=== PATIENT | female | born 1965 | race Caucasian/White ===

== ENCOUNTER → 2021-07-23 | Outpatient (CLI) | payer BC ==
--- NOTE | 2021-07-23 15:54 | KCIC ---
Bilateral digital screening mammograms with 3-D tomosynthesis: Reason for examination: Routine screening. Comparison is made to previous studies dated back to 09/05/2017. Bilateral mammograms in CC and oblique projections were obtained with 2-D imaging and 3-D tomosynthes is imaging on a Siemens Inspiration unit and reviewed on the workstation. Interpretation was made jovana amezcua the benefit of CAD. The skin and nipples show no abnormalities. No abnormal axillary lymph nodes are seen. The breast par enchyma is extremely dense. (Breast density: Category D.) There continues to be some focal dense pare nchymal asymmetry inferiorly in the left breast seen best on oblique view which is stable. There are no new dominant masses, suspicious calcifications or architectural distortion. Impression: No evidence of malignancy. Recommend routine screening. Your patient's mammogram demonstrates that she has dense breast tissue (breast density category C or D), which could hide abnormalities, and if she has other risk factors for breast cancer that have bee n identified, she might benefit from supplemental screening tests that may be suggested by you as her ordering physician. Dense breast tissue, in and of itself, is a relatively common condition. Therefo re, this information is not provided to cause undue concern, but rather to raise your awareness and t o promote discussion with your patient regarding the presence of other risk factors, in addition to d ense breast tissue. Your patient's mammography results will be sent to her. BI-RAD Category 2: Benign. "Our facility is accredited by the [employer] Mammography Program." This patient's information has been entered into a reminder system for the patient to be notified wit h the results of her examination and a target date for the next mammogram. Electronically signed by: Ioana Irvin MD (07/23/2021 3:51 PM) [id number]
== END ==
LOC: KCIC MAMMO 08:51 → EDBD 09:00
PROVIDERS: ATTEND Obstetrics & Gynecology
DX: Z12.31 Encounter for screening mammogram for malignant neoplasm of breast (principal)
CPT/HCPCS: 77063; 77067

== ENCOUNTER 2021-10-11 13:38 | Inpatient (IN) | payer BC ==
[~2021-10-11] VITALS: Ht 162.6 cm; Wt 52.6 kg
[2021-10-11] MEDS ORDERED: DIPHTH,PERTUSS(ACELL),TET TOX 0.5 ML DISP.SYRIN. VAX IM ONE (14:15)
[2021-10-11] MEDS ORDERED: PIPERACILLIN/TAZOBACTAM 4.5 GM in IV NORMAL SALINE 100ML 100 ML IV ONE (14:15)
[2021-10-11] MEDS ORDERED: MORPHINE SULFATE 4 MG/ML INJ. IV/SQ PRN (14:15)
[2021-10-11] MEDS ORDERED: VANCOMYCIN PER PHARMACY MC ONE (14:15)
[2021-10-11] MEDS ORDERED: PIPERACILLIN/TAZOBACTAM 4.5 GM in IV DEXTROSE 5% 100ML 100 ML IV ONE (14:22)
[2021-10-11] MEDS ORDERED: VANCOMYCIN 1.25 GM in IV NORMAL SALINE 250ML 250 ML IV ONE ×2 (14:30→19:00)
--- NOTE | 2021-10-11 14:34 | RAD ---
Left foot 3 views. HISTORY: Infected second toe. 3 views were taken of the left foot. There is soft tissue swelling of the second toe. There is no fra cture or bony destructive process of the second toe. There is marked arthritis at the first metatarsa l phalangeal joint with joint space narrowing. There are erosions at the head of the first metatarsal . Arthritis could have this pattern or an infectious arthritis. There is no other acute osseous abnor mality in the left foot. IMPRESSION: 1. Soft tissue swelling left second toe without a fracture or bony destructive process. 2. Marked arthritis first metatarsal phalangeal joint. Electronically signed by: Diaz Nguyen MD (10/11/2021 2:31 PM) [id number]
[2021-10-11] MEDS: IV NORMAL SALINE 1000ML BAG 1,000 ML IV SCH ×2 (14:52→15:24)
--- NOTE | 2021-10-11 15:44 | PHYS DOC ---
Past Medical History Past Surgical History: Other Additional Past Surgical Histo: l FOOT Smoking Status: Never Smoker Alcohol Use: None General Adult EDM: Chief Complaint: TOE PROBLEM HPI: HPI: Patient is a 56 year old female with no significant medical history presenting today complaining of an infected left second toe. Patient states a couple months ago she had a tiny cut on the bottom of the left toe, she states last week she picked on it and it developed a wound. She states the wound has gotten worse. Patient reports fever last night. Denies any nausea, vomiting. Denies any history of PVD. Review of Systems: Review of Systems: Constitutional: Denies fever or chills. [] HENT: Denies nasal congestion or sore throat. [] Respiratory: Denies cough or shortness of breath. [] Cardiovascular: Denies chest pain or edema. [] GI: Denies abdominal pain, nausea, vomiting, bloody stools or diarrhea. [] : Denies dysuria. [] Musculoskeletal: Denies back pain or joint pain. [] Integument: Reports infection to the left second toe Neurologic: Denies headache, focal weakness or sensory changes. [] Psychiatric: Denies depression or anxiety. [] Heart Score: C/O Chest Pain: N/A Risk Factors: Risk Factors: DM, Current or recent (<one month) smoker, HTN, HLP, family history of CAD, obesity. Risk Scores: Score 0 - 3: 2.5% MACE over next 6 weeks - Discharge Home Score 4 - 6: 20.3% MACE over next 6 weeks - Admit for Clinical Observation Score 7 - 10: 72.7% MACE over next 6 weeks - Early Invasive Strategies Current Medications: Current Medications Medications (Trade) Dose Ordered Sig/Eliana Start Time Stop Time Status Last Admin Dose Admin Diphtheria/ Tetanus/Acell Pertussis (Boostrix) 0.5 ml ONCE ONCE 10/11/21 14:15 10/11/21 14:19 DC 10/11/21 15:33 0.5 ML Morphine Sulfate (Morphine Sulfate) 4 mg PRN Q15MIN PRN 10/11/21 14:15 10/12/21 14:14 Piperacillin Sod/ Tazobactam Sod 4.5 gm/Dextrose 100 ml @ 200 mls/hr 1X ONCE 10/11/21 14:22 10/11/21 14:44 DC 10/11/21 15:26 200 MLS/HR Piperacillin Sod/ Tazobactam Sod 4.5 gm/Sodium Chloride 100 ml @ 200 mls/hr 1X ONCE 10/11/21 14:15 10/11/21 14:22 DC Sodium Chloride 1,000 ml @ 1,650 mls/hr Q37M 10/11/21 14:15 10/11/21 15:15 DC 10/11/21 15:24 1,650 MLS/HR Vancomycin HCl (Vanco Per Pharmacy) 1 each 1X ONCE 10/11/21 14:15 10/11/21 14:19 DC Vancomycin HCl 1.25 gm/Sodium Chloride 250 ml @ 166.667 mls/hr 1X ONCE 10/11/21 14:30 10/11/21 15:59 Allergies: Allergies: Allergies Coded Allergies Type Severity Reaction Last Updated Verified No Known Drug Allergies 10/11/21 No Physical Exam: PE: Constitutional: Well developed, well nourished, no acute distress, non-toxic appearance. [] HENT: Normocephalic, atraumatic, bilateral external ears normal, oropharynx moist, no oral exudates, nose normal. [] Eyes: PERRLA, EOMI, conjunctiva normal, no discharge. [] Neck: Normal range of motion, no tenderness, supple, no stridor. [] Cardiovascular:Heart rate regular rhythm, no murmur [] Lungs & Thorax: Bilateral breath sounds clear to auscultation [] Abdomen: Bowel sounds normal, soft, no tenderness, no masses, no pulsatile masses. [] Skin: Left second toe with moderate swelling, moderate cellulitis from the toe ventral and dorsal aspect to the top half of the foot. There are multiple blisters on the toe lateral and top, the bottom of the mid toe with areas that appear necrotic. The toe is warm tender to touch, range of motion is limited, no obvious drainage right now. +2 left pedal pulse. Cap refill less than 2 seconds to left second toe Back: No tenderness, no CVA tenderness. [] Extremities: No tenderness, no cyanosis, no clubbing, ROM intact, no edema. [] Neurologic: Alert and oriented X 3, normal motor function, normal sensory function, no focal deficits noted. [] Psychologic: Tearful, sad Current Patient Data: Vital Signs: Vital Signs Date Time Temp Pulse Resp B/P (MAP) Pulse Ox O2 Delivery O2 Flow Rate FiO2 10/11/21 13:40 98.6 110 18 133/89 (104) 100 Room Air 98.6 EKG: EKG: [] Radiology/Procedures: Radiology/Procedures: []PROCEDURE: FOOT LEFT 3V Left foot 3 views. HISTORY: Infected second toe. 3 views were taken of the left foot. There is soft tissue swelling of the second toe. There is no fracture or bony destructive process of the second toe. There is marked arthritis at the first metatarsal phalangeal joint with joint space narrowing. There are erosions at the head of the first metatarsal. Arthritis could have this pattern or an infectious arthritis. There is no other acute osseous abnormality in the left foot. IMPRESSION: 1. Soft tissue swelling left second toe without a fracture or bony destructive process. 2. Marked arthritis first metatarsal phalangeal joint. Electronically signed by: Diaz Nguyen MD (10/11/2021 2:31 PM) [id number] DICTATED and SIGNED BY: DIAZ NGUYEN MD DATE: 10/11/21 1429 Course & Med Decision Making: Course & Med Decision Making Pertinent Labs and Imaging studies reviewed. (See chart for details) This a 56-year-old female patient presenting to the ED today complaining of infected left second toe. Patient states she had a cut underneath the left second toe months ago, she picked on the area a last week and he developed a wound. Vitals on arrival to the ED temperature 98.6, heart rate 110, respiration 18 on room air, blood pressure 133/89, O2 sats 100% Patient was started on sepsis protocol including IV antibiotics, IV fluids. Left foot x-rays are negative for any acute findings CBC with a WBC of 11.4, CMP with no acute findings, lactic is normal. Spoke to Dr. Wakefield who accepted patient for admission Dr. Pereira radiation control technician came and saw patient, n.p.o. after midnight, surgery tomorrow for partial toe amputation Franky Disclaimer: Franky Disclaimer: This electronic medical record was generated, in whole or in part, using a voice recognition dictation system. Departure Departure Impression: Primary Impression: Toe infection Disposition: ADMITTED INPATIENT Condition: STABLE Referrals: HAN LOPES MD (PCP) ZULEYKA ANNE APRN Oct 11, 2021 15:44
[2021-10-11 15:45] LABS: BASO % 0 % (0-3); EOS % 0 % (0-3); HEMATOCRIT 38.9 % (36.0-47.0); HEMOGLOBIN 13.3 g/dL (12.0-15.5); LYMPH # 0.8 x10^3/uL (1.0-4.8); LYMPH % 7 % (24-48); MEAN CORPUSCULAR HEMOGLOBIN 29 pg (25-35); MEAN CORPUSCULAR HGB CONC 34 g/dL (31-37); MEAN CORPUSCULAR VOLUME 84 fL (79-100); MONO # 0.9 x10^3/uL (0.0-1.1); MONO % 8 % (0-9); NEUT # 9.6 x10^3/uL (1.8-7.7); NEUT % 85 % (31-73); PLATELET COUNT 260 x10^3/uL (140-400); RED BLOOD COUNT 4.62 x10^6/uL (3.50-5.40); RED CELL DISTRIBUTION WIDTH 13.5 % (11.5-14.5); WHITE BLOOD COUNT 11.4 x10^3/uL (4.0-11.0)
[2021-10-11 16:06] LABS: CALCIUM 9.6 mg/dL (8.5-10.1); GFR 57.1; POTASSIUM 4.2 mmol/L (3.5-5.1)
[2021-10-11 16:19] LABS: ALBUMIN 4.3 g/dL (3.4-5.0); TOTAL BILIRUBIN 1.1 mg/dL (0.2-1.0); TOTAL PROTEIN 8.4 g/dL (6.4-8.2)
[2021-10-11 16:36] LABS: BARBITURATES NEG (NEG); BENZODIAZEPINES NEG (NEG); CANNABINOIDS NEG (NEG); COCAINE NEG (NEG); METHADONE NEG (NEG); OPIATES NEG (NEG); PHENCYCLIDINE NEG (NEG)
--- NOTE | 2021-10-11 16:36 | RAD ---
INDICATION: Reason: Left toe wound / Spl. Instructions: / History: COMPARISON: None. TECHNIQUE: Grayscale, color and doppler ultrasound images were obtained of the left lower extremity v enous vasculature. LEFT: No thrombus identified in the common femoral vein, femoral vein, popliteal vein or visualized calf ve ins. IMPRESSION: * No thrombus identified in deep venous system of the left lower extremity. * Enlarged lymph node in the left groin measuring 27 x 16 mm. Could be reactive in nature but follow -up could be obtained to ensure this appropriately regresses to exclude less common neoplastic causes . Electronically signed by: Asher Prieto MD (10/11/2021 4:34 PM) [id number]
--- NOTE | 2021-10-11 16:38 | RAD ---
US LEFT LOWER EXTREMITY ARTERIAL DUPLEX EVAL Indication: Reason: Left toe wound / Spl. Instructions: / History: Comparison: None. Procedure: Real-time grayscale, color flow Doppler, and Doppler spectral waveform analysis of the art erial system of the lower extremity is performed. Findings: Triphasic waveforms throughout the majority of the left lower extremity. Monophasic waveform within t he left dorsalis pedis artery. Mildly elevated velocity within the common femoral artery measures 150 cm/s. No occlusion. IMPRESSION: 1. Mildly elevated velocity within the left common femoral artery, may indicate 30-49 percent stenos is. 2. Monophasic waveform within the left dorsalis pedis artery, may relate to proximal stenosis. Electronically signed by: Alberto Coronel DO (10/11/2021 4:36 PM) [facility]
[2021-10-11 16:49] LABS: AMPHETAMINE/METHAMPHETAMINE NEG (NEG)
[2021-10-11 16:58] LABS: BACTERIA,URINE 0 /HPF (0-FEW)
[2021-10-11] MEDS ORDERED: ACETAMINOPHEN 325 MG TABLET. PO PRN ×2 (17:15→18:30)
[2021-10-11] MEDS ORDERED: ONDANSETRON PF 4 MG/2 ML VIAL. IVP PRN ×2 (17:15→18:30)
[2021-10-11] MEDS ORDERED: MORPHINE SULFATE 4 MG/ML INJ. IVP PRN (17:15)
--- NOTE | 2021-10-11 18:26 | PDOC1 ---
History and Physical Date of Service: DOS: DATE: 10/11/21 TIME: 18:26 Chief Complaint: Chief Complain: Left toe pain History of Present Illness: HPI: Patient is a 56 year old female with no significant medical history presenting today complaining of an infected left second toe. Patient states a couple months ago she had a tiny cut on the bottom of the left toe, she states last week she picked on it and it developed a wound. She states the wound has gotten worse. Has tried wrapping it feels like she wrapped it too tight and consult the circulation. Patient reports fever last night. Denies any nausea, vomiting. Denies any history of PVD. No history of wound healing issues. No history of diabetes Past Medical/Surgical History: PMH/PSH: Hypothyroid Allergies: Allergies: Coded Allergies: No Known Drug Allergies (Unverified , 10/11/21) Family History: Family History: None known per patient Social History: Social History: Denies alcohol tobacco or drug use. Current Medications: Current Medications Current Medications Sodium Chloride 1,000 ml @ 1,650 mls/hr Q37M IV Last administered on 10/11/21at 15:24; Start 10/11/21 at 14:15; Stop 10/11/21 at 15:15; Status DC Piperacillin Sod/ Tazobactam Sod 4.5 gm/Sodium Chloride 100 ml @ 200 mls/hr 1X ONCE IV ; Start 10/11/21 at 14:15; Stop 10/11/21 at 14:22; Status DC Vancomycin HCl (Vanco Per Pharmacy) 1 each 1X ONCE MC ; Start 10/11/21 at 14:15; Stop 10/11/21 at 14:19; Status DC Morphine Sulfate (Morphine Sulfate) 4 mg PRN Q15MIN PRN IV/SQ PAIN GREATER THAN 3/10; Start 10/11/21 at 14:15; Stop 10/12/21 at 14:14 Diphtheria/ Tetanus/Acell Pertussis (Boostrix) 0.5 ml ONCE ONCE VAX IM Last administered on 10/11/21at 15:33; Start 10/11/21 at 14:15; Stop 10/11/21 at 14: 19; Status DC Vancomycin HCl 1.25 gm/Sodium Chloride 250 ml @ 166.667 mls/hr 1X ONCE IV Last administered on 10/11/21at 16:05; Start 10/11/21 at 14:30; Stop 10/11/21 at 15:59; Status DC Piperacillin Sod/ Tazobactam Sod 4.5 gm/Dextrose 100 ml @ 200 mls/hr 1X ONCE IV Last administered on 10/11/21at 15:26; Start 10/11/21 at 14:22; Stop 10/11/21 at 14:44; Status DC Ondansetron HCl (Zofran) 4 mg PRN Q8HRS PRN IVP NAUSEA/VOMITING; Start 10/11/21 at 17:15; Stop 10/12/21 at 17:14 Morphine Sulfate (Morphine Sulfate) 4 mg PRN Q2HR PRN IVP PAIN; Start 10/11/21 at 17:15; Stop 10/12/21 at 17:14 Acetaminophen (Tylenol) 650 mg PRN Q4HRS PRN PO FEVER > 100.3'F; Start 10/11/21 at 17:15; Stop 10/12/21 at 17:14 Vancomycin HCl (Vanco Per Pharmacy) 1 each PRN DAILY PRN MC SEE COMMENTS; Start 10/11/21 at 18:30; Status UNV Cefepime HCl (Maxipime) 2 gm Q12HR IVP ; Start 10/11/21 at 19:00 Metronidazole 100 ml @ 100 mls/hr Q8HRS IV ; Start 10/11/21 at 22:00; Status UNV ROS: Review of Systems Review of System Unless noted in HPI 14 point review of systems is negative Physical Exam: Vital Signs: Vital Signs Date Time Temp Pulse Resp B/P (MAP) Pulse Ox O2 Delivery O2 Flow Rate FiO2 10/11/21 16:09 101 18 126/88 (101) 100 Room Air 10/11/21 13:40 98.6 98.6 Physcial Exam: GEN: Quite a bit of emotional distress HEENT: Normal cephalic, atraumatic, external auditory canals are patent EYES: Extraocular muscles are intact, pupil are equally round and reactive to light and accommodation MUSCULOSKELETAL: Well developed , well nourished, good range of motion ENDOCRINE: No thyromegaly was palpated LYMPHATICS: No cervical chain or axillary nodes were noted HEMATOPOIETIC: No bruising NECK: Supple, no JVD, no thyromegaly was noted LUNGS: Clear to auscultation in all lung bardales without rhonchi or wheezing HEART: RRR, S1, S2 present. Peripheral pulses intact, no obvious murmurs noted ABDOMEN: Soft, nontender. Positive bowel sounds, no organomegaly, normal bowel sounds EXTREMITIES: Without clubbing, cyanosis, or edema. Pedal pulses intact. Negative Homans sign NEUROLOGIC: Normal speech and tone. A&O x 3, moves all extremities, no obvious focal deficits PSYCHIATRIC: Normal affect, normal mood. Stable SKIN: Weeping of fluid and cellulitic on left second toe VASCULAR: Good capillary refill, neurovascular bundle appears to be intact Labs: Labs: Laboratory Tests Test 10/11/21 15:10 10/11/21 15:18 10/11/21 16:15 White Blood Count 11.4 x10^3/uL (4.0-11.0) Red Blood Count 4.62 x10^6/uL (3.50-5.40) Hemoglobin 13.3 g/dL (12.0-15.5) Hematocrit 38.9 % (36.0-47.0) Mean Corpuscular Volume 84 fL (79-100) Mean Corpuscular Hemoglobin 29 pg (25-35) Mean Corpuscular Hemoglobin Concent 34 g/dL (31-37) Red Cell Distribution Width 13.5 % (11.5-14.5) Platelet Count 260 x10^3/uL (140-400) Neutrophils (%) (Auto) 85 % (31-73) Lymphocytes (%) (Auto) 7 % (24-48) Monocytes (%) (Auto) 8 % (0-9) Eosinophils (%) (Auto) 0 % (0-3) Basophils (%) (Auto) 0 % (0-3) Neutrophils # (Auto) 9.6 x10^3/uL (1.8-7.7) Lymphocytes # (Auto) 0.8 x10^3/uL (1.0-4.8) Monocytes # (Auto) 0.9 x10^3/uL (0.0-1.1) Eosinophils # (Auto) 0.0 x10^3/uL (0.0-0.7) Basophils # (Auto) 0.0 x10^3/uL (0.0-0.2) Erythrocyte Sedimentation Rate 31 (0-25) Sodium Level 138 mmol/L (136-145) Potassium Level 4.2 mmol/L (3.5-5.1) Chloride Level 100 mmol/L (98-107) Carbon Dioxide Level 30 mmol/L (21-32) Anion Gap 8 (6-14) Blood Urea Nitrogen 13 mg/dL (7-20) Creatinine 1.0 mg/dL (0.6-1.0) Estimated GFR (Cockcroft-Gault) 57.1 BUN/Creatinine Ratio 13 (6-20) Glucose Level 106 mg/dL (70-99) Lactic Acid Level 0.7 mmol/L (0.4-2.0) Calcium Level 9.6 mg/dL (8.5-10.1) Total Bilirubin 1.1 mg/dL (0.2-1.0) Aspartate Amino Transf (AST/SGOT) 60 U/L (15-37) Alanine Aminotransferase (ALT/SGPT) 56 U/L (14-59) Alkaline Phosphatase 79 U/L (46-116) C-Reactive Protein, Quantitative 21.6 mg/L (0-3.3) Total Protein 8.4 g/dL (6.4-8.2) Albumin 4.3 g/dL (3.4-5.0) Albumin/Globulin Ratio 1.0 (1.0-1.7) Procalcitonin < 0.10 ng/mL (0.00-0.10) Urine Collection Type Unknown Urine Color (Auto) Colorless Urine Turbidity Clear Urine pH (Auto) 6.5 (<5.0-8.0) Urine Specific Dafter 1.006 (1.000-1.030) Urine Protein (Auto) Negative mg/dL (Negative) Urine Glucose (Auto)(UA) Negative mg/dL (Negative) Urine Ketones (Auto) Negative mg/dL (Negative) Urine Blood (Auto) Trace (Negative) Urine Nitrite Negative (Negative) Urine Bilirubin (Auto) Negative (Negative) Urine Urobilinogen (Auto) Normal mg/dL (Normal) Urine Leukocyte Esterase (Auto) Negative (Negative) Urine RBC 1-2 /HPF (0-2) Urine WBC 1-4 /HPF (0-4) Urine Squamous Epithelial Cells Occ /LPF Urine Bacteria 0 /HPF (0-FEW) Urine Opiates Screen Neg (NEG) Urine Methadone Screen Neg (NEG) Urine Barbiturates Neg (NEG) Urine Phencyclidine Screen Neg (NEG) Urine Amphetamine/Methamphetamine Neg (NEG) Urine Benzodiazepines Screen Neg (NEG) Urine Cocaine Screen Neg (NEG) Urine Cannabinoids Screen Neg (NEG) Urine Ethyl Alcohol Neg (NEG) SARS-CoV-2 Antigen (Rapid) Negative (NEGATIVE) Laboratory Tests Test 10/11/21 15:10 10/11/21 15:18 10/11/21 16:15 White Blood Count 11.4 x10^3/uL (4.0-11.0) Red Blood Count 4.62 x10^6/uL (3.50-5.40) Hemoglobin 13.3 g/dL (12.0-15.5) Hematocrit 38.9 % (36.0-47.0) Mean Corpuscular Volume 84 fL (79-100) Mean Corpuscular Hemoglobin 29 pg (25-35) Mean Corpuscular Hemoglobin Concent 34 g/dL (31-37) Red Cell Distribution Width 13.5 % (11.5-14.5) Platelet Count 260 x10^3/uL (140-400) Neutrophils (%) (Auto) 85 % (31-73) Lymphocytes (%) (Auto) 7 % (24-48) Monocytes (%) (Auto) 8 % (0-9) Eosinophils (%) (Auto) 0 % (0-3) Basophils (%) (Auto) 0 % (0-3) Neutrophils # (Auto) 9.6 x10^3/uL (1.8-7.7) Lymphocytes # (Auto) 0.8 x10^3/uL (1.0-4.8) Monocytes # (Auto) 0.9 x10^3/uL (0.0-1.1) Eosinophils # (Auto) 0.0 x10^3/uL (0.0-0.7) Basophils # (Auto) 0.0 x10^3/uL (0.0-0.2) Erythrocyte Sedimentation Rate 31 (0-25) Sodium Level 138 mmol/L (136-145) Potassium Level 4.2 mmol/L (3.5-5.1) Chloride Level 100 mmol/L (98-107) Carbon Dioxide Level 30 mmol/L (21-32) Anion Gap 8 (6-14) Blood Urea Nitrogen 13 mg/dL (7-20) Creatinine 1.0 mg/dL (0.6-1.0) Estimated GFR (Cockcroft-Gault) 57.1 BUN/Creatinine Ratio 13 (6-20) Glucose Level 106 mg/dL (70-99) Lactic Acid Level 0.7 mmol/L (0.4-2.0) Calcium Level 9.6 mg/dL (8.5-10.1) Total Bilirubin 1.1 mg/dL (0.2-1.0) Aspartate Amino Transf (AST/SGOT) 60 U/L (15-37) Alanine Aminotransferase (ALT/SGPT) 56 U/L (14-59) Alkaline Phosphatase 79 U/L (46-116) C-Reactive Protein, Quantitative 21.6 mg/L (0-3.3) Total Protein 8.4 g/dL (6.4-8.2) Albumin 4.3 g/dL (3.4-5.0) Albumin/Globulin Ratio 1.0 (1.0-1.7) Procalcitonin < 0.10 ng/mL (0.00-0.10) Urine Collection Type Unknown Urine Color (Auto) Colorless Urine Turbidity Clear Urine pH (Auto) 6.5 (<5.0-8.0) Urine Specific Dafter 1.006 (1.000-1.030) Urine Protein (Auto) Negative mg/dL (Negative) Urine Glucose (Auto)(UA) Negative mg/dL (Negative) Urine Ketones (Auto) Negative mg/dL (Negative) Urine Blood (Auto) Trace (Negative) Urine Nitrite Negative (Negative) Urine Bilirubin (Auto) Negative (Negative) Urine Urobilinogen (Auto) Normal mg/dL (Normal) Urine Leukocyte Esterase (Auto) Negative (Negative) Urine RBC 1-2 /HPF (0-2) Urine WBC 1-4 /HPF (0-4) Urine Squamous Epithelial Cells Occ /LPF Urine Bacteria 0 /HPF (0-FEW) Urine Opiates Screen Neg (NEG) Urine Methadone Screen Neg (NEG) Urine Barbiturates Neg (NEG) Urine Phencyclidine Screen Neg (NEG) Urine Amphetamine/Methamphetamine Neg (NEG) Urine Benzodiazepines Screen Neg (NEG) Urine Cocaine Screen Neg (NEG) Urine Cannabinoids Screen Neg (NEG) Urine Ethyl Alcohol Neg (NEG) SARS-CoV-2 Antigen (Rapid) Negative (NEGATIVE) Assessment/Plan Assessment/Plan Left second toe infection possible osteomyelitis versus soft tissue infection, hypothyroid -Worsening infection of left second toe. Cut the underside patient says she has been scratching at it a lot reopening the scab -Definitely infected on clinical exam. Will start broad-spectrum Vanco cefepime Flagyl. Received Vanco Zosyn in emergency room -Denies any wound healing issues -infectious disease consult -wound care consult -Podiatry consulted see below -Hold off DVT prophylaxis for the night -Okay for regular diet See below for further discussion Had a long discussion with the patient regarding treatment plans moving forward. She is adamant against surgery but does not feel like she has any other options from what has been explained to her. I informed her that there is the option to hold off with surgery and give IV antibiotics a try with meticulous wound care; given her lack of comorbid conditions and healthy lifestyle. She seemed interested in this but I did inform her however that I am no surgeon and I cannot speak to their recommendations for surgery as there may be reasoning I am unaware of. At that point I did recommend to her holding off on surgery until further information can be gathered in terms of vascular flow to the toe, extent of infection in regards to osteomyelitis (no MRI done but no evidence on imaging or clinical exam thus far), wound care evaluation and continuation of IV antibiotics. 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 Despite my recommendations I greatly appreciate podiatry colleagues seeing and evaluating the patient in the emergency room. Patient is aware that despite some of these more conservative measures there is a likel ihood she will still have to undergo amputation. Justifications for Admission Other Justification OUMAR IBRAHIM MD Oct 11, 2021 18:26
[2021-10-11] MEDS ORDERED: CALCIUM CARBONATE 500 MG TAB.CHEW PO PRN (18:30)
[2021-10-11] MEDS ORDERED: MORPHINE SULFATE 2 MG/ML INJ. IV PRN ×2 (18:30)
[2021-10-11] MEDS ORDERED: ELECTROLYTE (NON-ICU) PROTOCOL. MC PRN (18:30)
[2021-10-11] MEDS ORDERED: ZOLPIDEM 5 MG TABLET. PO PRN (18:30)
[2021-10-11 19:00] VITALS: BP 117/79
[2021-10-11] MEDS: CEFEPIME HCL IV Push 2 GM VIAL. IVP SCH (19:41)
[2021-10-11] MEDS: VANCOMYCIN PER PHARMACY MC PRN (20:00)
--- NOTE | 2021-10-11 20:05 | NUR ---
Pharmacy Vancomycin Dosing Note S:Consulted to monitor and dose vancomycin started 10/11/21. O:FELTON RUSS is a 56 year old F with Cellulitis . Height: 5 feet, 4 inches Weight: 52.8 kg [place] Body Weight: 54.70 Adjusted Body Weight: 53.94 Dosing Weight: Actual Other Antibiotics: LABS: Last BUN: 13 Last Creatinine: 1.0 Creatinine Clearance: 52 mL/min Last WBC: 11.4 Last Procalcitonin: Tmax (past 24 hours): 98.6 Microbiology: I/O: Drug Levels: Last level: on at Last dose given 10/11/21 at 1942 Vancomycin Dosing: Loading Dose: 1250 mg x1 Dosing Weight: Actual Target Trough: 10-20 A: Based on weight and est. CrCl: P: 1. Start Vancomycin 1250mg, followed by Vancomycin 750 mg IV q24h. 2. Follow up Trough level on 10/13/21 at 1930. 3. Pharmacy will continue to monitor, follow and adjust therapy as needed. Malcolm Ovalles [facility], 10/11/212004
--- NOTE | 2021-10-11 20:24 | PDOC2 ---
CONSULT Date of Consult Date of Consult DATE: 10/11/21 TIME: 20:10 Reason for Consult Reason for Consult: Left second toe wound infection Identification/Chief Complaint Chief Complaint Swollen, red and painful left second toe Source Source: Patient History of Present Illness Reason for Visit: Patient without a significant medical history presented with a left second digit ulcer. About 2 months ago, she noticed a small cut to the plantar surface of th e second digit. She was self dressing it with Band-Aids and was picking at the scab. About 2 days ago, the toe became progressively swollen, red and dusky. Last night, Pt spiked a fever and woke up in sweats. Upon ED admission, patient was found tachycardia with HR 110, WBC 11.4 , ESR 31. Patient was put on Vanco and Zosyn for empiric antibiotic therapy. Arterial Doppler was insignificant for severe PAD. X-ray was insignificant for soft tissue emphysema or osteolytic changes. 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 She denies any history of tobacco abuse. Patient also relates a history of cheilectomy/bone spur removal to the left first MTPJ. She denies pain, worsening swelling or deformity across the first MTPJ. Current Problem List Problem List Problems Medical Problems: (1) Toe infection Status: Acute Current Medications Current Medications Current Medications Sodium Chloride 1,000 ml @ 1,650 mls/hr Q37M IV Last administered on 10/11/21at 15:24; Start 10/11/21 at 14:15; Stop 10/11/21 at 15:15; Status DC Piperacillin Sod/ Tazobactam Sod 4.5 gm/Sodium Chloride 100 ml @ 200 mls/hr 1X ONCE IV ; Start 10/11/21 at 14:15; Stop 10/11/21 at 14:22; Status DC Vancomycin HCl (Vanco Per Pharmacy) 1 each 1X ONCE MC ; Start 10/11/21 at 14:15; Stop 10/11/21 at 14:19; Status DC Morphine Sulfate (Morphine Sulfate) 4 mg PRN Q15MIN PRN IV/SQ PAIN GREATER THAN 3/10; Start 10/11/21 at 14:15; Stop 10/12/21 at 14:14 Diphtheria/ Tetanus/Acell Pertussis (Boostrix) 0.5 ml ONCE ONCE VAX IM Last administered on 10/11/21at 15:33; Start 10/11/21 at 14:15; Stop 10/11/21 at 14:19; Status DC Vancomycin HCl 1.25 gm/Sodium Chloride 250 ml @ 166.667 mls/hr 1X ONCE IV Last administered on 10/11/21at 16:05; Start 10/11/21 at 14:30; Stop 10/11/21 at 15:59; Status DC Piperacillin Sod/ Tazobactam Sod 4.5 gm/Dextrose 100 ml @ 200 mls/hr 1X ONCE IV Last administered on 10/11/21at 15:26; Start 10/11/21 at 14:22; Stop 10/11/21 at 14:44; Status DC Ondansetron HCl (Zofran) 4 mg PRN Q8HRS PRN IVP NAUSEA/VOMITING; Start 10/11/21 at 17:15; Stop 10/12/21 at 17:14 Morphine Sulfate (Morphine Sulfate) 4 mg PRN Q2HR PRN IVP PAIN; Start 10/11/21 at 17:15; Stop 10/12/21 at 17:14 Acetaminophen (Tylenol) 650 mg PRN Q4HRS PRN PO FEVER > 100.3'F; Start 10/11/21 at 17:15; Stop 10/12/21 at 17:14 Vancomycin HCl (Vanco Per Pharmacy) 1 each PRN DAILY PRN MC SEE COMMENTS Last administered on 10/11/21at 20:00; Start 10/11/21 at 18:30 Cefepime HCl (Maxipime) 2 gm Q12HR IVP Last administered on 10/11/21at 19:41; Start 10/11/21 at 19:00 Metronidazole 100 ml @ 100 mls/hr Q8HRS IV ; Start 10/11/21 at 22:00 Vancomycin HCl 1.25 gm/Sodium Chloride 250 ml @ 166.667 mls/hr 1X ONCE IV Last administered on 10/11/21at 19:42; Start 10/11/21 at 19:00; Stop 10/11/21 at 20:29 Ondansetron HCl (Zofran) 4 mg PRN Q6HRS PRN IVP NAUSEA/VOMITING; Start 10/11/21 at 18:30 Calcium Carbonate/ Glycine (Tums) 500 mg PRN Q3HRS PRN PO UPSET STOMACH; Start 10/11/21 at 18:30 Zolpidem Tartrate (Ambien) 5 mg PRN QHS PRN PO INSOMNIA, MAY REPEAT IN 1HR; Start 10/11/21 at 18:30 Info (Non-Icu Electrolyte Protocol) 1 ea PRN DAILY PRN MC SEE COMMENTS; Start 10/11/21 at 18:30 Morphine Sulfate (Morphine Sulfate) 1 mg PRN Q1HR PRN IV PAIN-SEE COMMENTS; Start 10/11/21 at 18:30 Morphine Sulfate (Morphine Sulfate) 2 mg PRN Q1HR PRN IV PAIN-SEE COMMENTS; Start 10/11/21 at 18:30 Acetaminophen (Tylenol) 650 mg PRN Q6HRS PRN PO Headaches, Temp > 101.5F; Start 10/11/21 at 18:30 Senna/Docusate Sodium (Senna Plus) 1 tab BID PO ; Start 10/11/21 at 21:00 Levothyroxine Sodium (Synthroid) 25 mcg DAILY06 PO ; Start 10/12/21 at 06:00 Allergies Allergies: Coded Allergies: No Known Drug Allergies (Unverified , 10/11/21) ROS Review of System CONSTITUTIONAL: No fever. No chills. No dizziness. No weakness. CARDIOVASCULAR: No chest pain. No palpitations. No lower extremity edema. RESPIRATORY: No shortness of breath, cough, pain with respiration. No hemoptysis. No dyspnea. GASTROINTESTINAL: Normal appetite. No nausea, vomiting, diarrhea. GENITOURINARY: No frequency, urgency, nocturia. No hematuria or dysuria. MUSCULOSKELETAL: No arthralgias or myalgias. INTEGUMENTARY: Refer to HPI NEUROLOGIC: No numbness or tingling of the extremities. No weakness. PSYCHIATRIC: No confusion. ENDOCRINE: No fatigue. No weakness. HEMATOLOGICAL: No bleeding. No petechiae. No bruising. ALLERGIES: No asthma. No urticaria Physical Exam Physical Exam General: Pleasant without apparent distress, AOx3 Left lower extremity focused Dermatology: -Globally edematous, erythematous changes to the left second digit to the level of distal second MTPJ. There is serous blisters dorsal and plantar to the digit. Dusky changes and mild ischemic changes to the plantar second DIPJ. -There is a full-thickness wound to the plantar PIPJ, probe deep without any fluctuance but drains serous fluid -Mild lymphangitis and proximal streaking to the distal anterior leg -Palpable and painful left inguinal lymph nodes Vascular: -DP/PT palpable -Foot is warm to touch with CFT less than 3 seconds x 5 Neurology: -Light touch sensation diminished to the level of distal leg MSK: -Mild TTP to left second digit -Rigid and limited passive first MTPJ range of motion however without fluctuance or crepitus or pain -Able to move digits 1 through 5 -Muscle strength 5 out of 5 across ankle joint -Calf is soft and nontender Vitals VITALS Vital Signs Date Time Temp Pulse Resp B/P (MAP) Pulse Ox O2 Delivery O2 Flow Rate FiO2 10/11/21 18:31 81 18 125/78 (94) 99 Room Air 10/11/21 13:40 98.6 98.6 Labs Labs Laboratory Tests Test 10/11/21 15:10 10/11/21 15:18 10/11/21 16:15 White Blood Count 11.4 x10^3/uL (4.0-11.0) Red Blood Count 4.62 x10^6/uL (3.50-5.40) Hemoglobin 13.3 g/dL (12.0-15.5) Hematocrit 38.9 % (36.0-47.0) Mean Corpuscular Volume 84 fL (79-100) Mean Corpuscular Hemoglobin 29 pg (25-35) Mean Corpuscular Hemoglobin Concent 34 g/dL (31-37) Red Cell Distribution Width 13.5 % (11.5-14.5) Platelet Count 260 x10^3/uL (140-400) Neutrophils (%) (Auto) 85 % (31-73) Lymphocytes (%) (Auto) 7 % (24-48) Monocytes (%) (Auto) 8 % (0-9) Eosinophils (%) (Auto) 0 % (0-3) Basophils (%) (Auto) 0 % (0-3) Neutrophils # (Auto) 9.6 x10^3/uL (1.8-7.7) Lymphocytes # (Auto) 0.8 x10^3/uL (1.0-4.8) Monocytes # (Auto) 0.9 x10^3/uL (0.0-1.1) Eosinophils # (Auto) 0.0 x10^3/uL (0.0-0.7) Basophils # (Auto) 0.0 x10^3/uL (0.0-0.2) Erythrocyte Sedimentation Rate 31 (0-25) Sodium Level 138 mmol/L (136-145) Potassium Level 4.2 mmol/L (3.5-5.1) Chloride Level 100 mmol/L (98-107) Carbon Dioxide Level 30 mmol/L (21-32) Anion Gap 8 (6-14) Blood Urea Nitrogen 13 mg/dL (7-20) Creatinine 1.0 mg/dL (0.6-1.0) Estimated GFR (Cockcroft-Gault) 57.1 BUN/Creatinine Ratio 13 (6-20) Glucose Level 106 mg/dL (70-99) Lactic Acid Level 0.7 mmol/L (0.4-2.0) Calcium Level 9.6 mg/dL (8.5-10.1) Total Bilirubin 1.1 mg/dL (0.2-1.0) Aspartate Amino Transf (AST/SGOT) 60 U/L (15-37) Alanine Aminotransferase (ALT/SGPT) 56 U/L (14-59) Alkaline Phosphatase 79 U/L (46-116) C-Reactive Protein, Quantitative 21.6 mg/L (0-3.3) Total Protein 8.4 g/dL (6.4-8.2) Albumin 4.3 g/dL (3.4-5.0) Albumin/Globulin Ratio 1.0 (1.0-1.7) Procalcitonin < 0.10 ng/mL (0.00-0.10) Urine Collection Type Unknown Urine Color (Auto) Colorless Urine Turbidity Clear Urine pH (Auto) 6.5 (<5.0-8.0) Urine Specific [place] 1.006 (1.000-1.030) Urine Protein (Auto) Negative mg/dL (Negative) Urine Glucose (Auto)(UA) Negative mg/dL (Negative) Urine Ketones (Auto) Negative mg/dL (Negative) Urine Blood (Auto) Trace (Negative) Urine Nitrite Negative (Negative) Urine Bilirubin (Auto) Negative (Negative) Urine Urobilinogen (Auto) Normal mg/dL (Normal) Urine Leukocyte Esterase (Auto) Negative (Negative) Urine RBC 1-2 /HPF (0-2) Urine WBC 1-4 /HPF (0-4) Urine Squamous Epithelial Cells Occ /LPF Urine Bacteria 0 /HPF (0-FEW) Urine Opiates Screen Neg (NEG) Urine Methadone Screen Neg (NEG) Urine Barbiturates Neg (NEG) Urine Phencyclidine Screen Neg (NEG) Urine Amphetamine/Methamphetamine Neg (NEG) Urine Benzodiazepines Screen Neg (NEG) Urine Cocaine Screen Neg (NEG) Urine Cannabinoids Screen Neg (NEG) Urine Ethyl Alcohol Neg (NEG) SARS-CoV-2 Antigen (Rapid) Negative (NEGATIVE) Laboratory Tests Test 10/11/21 15:10 10/11/21 15:18 10/11/21 16:15 White Blood Count 11.4 x10^3/uL (4.0-11.0) Red Blood Count 4.62 x10^6/uL (3.50-5.40) Hemoglobin 13.3 g/dL (12.0-15.5) Hematocrit 38.9 % (36.0-47.0) Mean Corpuscular Volume 84 fL (79-100) Mean Corpuscular Hemoglobin 29 pg (25-35) Mean Corpuscular Hemoglobin Concent 34 g/dL (31-37) Red Cell Distribution Width 13.5 % (11.5-14.5) Platelet Count 260 x10^3/uL (140-400) Neutrophils (%) (Auto) 85 % (31-73) Lymphocytes (%) (Auto) 7 % (24-48) Monocytes (%) (Auto) 8 % (0-9) Eosinophils (%) (Auto) 0 % (0-3) Basophils (%) (Auto) 0 % (0-3) Neutrophils # (Auto) 9.6 x10^3/uL (1.8-7.7) Lymphocytes # (Auto) 0.8 x10^3/uL (1.0-4.8) Monocytes # (Auto) 0.9 x10^3/uL (0.0-1.1) Eosinophils # (Auto) 0.0 x10^3/uL (0.0-0.7) Basophils # (Auto) 0.0 x10^3/uL (0.0-0.2) Erythrocyte Sedimentation Rate 31 (0-25) Sodium Level 138 mmol/L (136-145) Potassium Level 4.2 mmol/L (3.5-5.1) Chloride Level 100 mmol/L (98-107) Carbon Dioxide Level 30 mmol/L (21-32) Anion Gap 8 (6-14) Blood Urea Nitrogen 13 mg/dL (7-20) Creatinine 1.0 mg/dL (0.6-1.0) Estimated GFR (Cockcroft-Gault) 57.1 BUN/Creatinine Ratio 13 (6-20) Glucose Level 106 mg/dL (70-99) Lactic Acid Level 0.7 mmol/L (0.4-2.0) Calcium Level 9.6 mg/dL (8.5-10.1) Total Bilirubin 1.1 mg/dL (0.2-1.0) Aspartate Amino Transf (AST/SGOT) 60 U/L (15-37) Alanine Aminotransferase (ALT/SGPT) 56 U/L (14-59) Alkaline Phosphatase 79 U/L (46-116) C-Reactive Protein, Quantitative 21.6 mg/L (0-3.3) Total Protein 8.4 g/dL (6.4-8.2) Albumin 4.3 g/dL (3.4-5.0) Albumin/Globulin Ratio 1.0 (1.0-1.7) Procalcitonin < 0.10 ng/mL (0.00-0.10) Urine Collection Type Unknown Urine Color (Auto) Colorless Urine Turbidity Clear Urine pH (Auto) 6.5 (<5.0-8.0) Urine Specific [place] 1.006 (1.000-1.030) Urine Protein (Auto) Negative mg/dL (Negative) Urine Glucose (Auto)(UA) Negative mg/dL (Negative) Urine Ketones (Auto) Negative mg/dL (Negative) Urine Blood (Auto) Trace (Negative) Urine Nitrite Negative (Negative) Urine Bilirubin (Auto) Negative (Negative) Urine Urobilinogen (Auto) Normal mg/dL (Normal) Urine Leukocyte Esterase (Auto) Negative (Negative) Urine RBC 1-2 /HPF (0-2) Urine WBC 1-4 /HPF (0-4) Urine Squamous Epithelial Cells Occ /LPF Urine Bacteria 0 /HPF (0-FEW) Urine Opiates Screen Neg (NEG) Urine Methadone Screen Neg (NEG) Urine Barbiturates Neg (NEG) Urine Phencyclidine Screen Neg (NEG) Urine Amphetamine/Methamphetamine Neg (NEG) Urine Benzodiazepines Screen Neg (NEG) Urine Cocaine Screen Neg (NEG) Urine Cannabinoids Screen Neg (NEG) Urine Ethyl Alcohol Neg (NEG) SARS-CoV-2 Antigen (Rapid) Negative (NEGATIVE) Assessment/Plan Assessment/Plan Cellulitis, lymphangitis derived from a left second digit wound Patient met SIRS criteria for admission -I explained to patient that the serous blisters and ischemic skin changes are secondary to deep tissue abscess. The proximal lymphangitis, lymphadenopathy and fever are suggestive of systemic infection especially in the setting of leukocytosis. Direct source control by removing the second digit is the gold standard for infection management. I do not think the ischemic skin will survive especially given the chronicity of the wound. 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 But if the infection is not controlled, she may lose more part of her foot. -Broad-spectrum IV antibiotics consisted of cefepime, Flagyl and vancomycin -Pending bedside swab culture -Pending blood culture -Nonweightbearing to the left forefoot -Dressing change with Betadine paint to the second digit twice daily. Keep the skin clean, dry Dispo: I had a long conversation with patient in room with her on the phone. We discussed the risks and benefits of surgical source control vs. IV abx. They eventually want to delay surgery for 10/12 and hear more input from Infectious Disease. I will check in patient on her decision tomorrow afternoon. RAMIRO CARABALLO DPM Oct 11, 2021 20:24
--- NOTE | 2021-10-11 20:30 | NUR ---
Patient arrived to unit at 1830 per WC from ER to room 444. Admitting diagnosis: infected 2nd toe on left foot. Patient admitted for surgical evaluation and IV antibiotics. Dr. Pereira was consulted and patient was seen in ER. On arrival to floor patient upset and anxious about losing her toe. Dr. Wakefield here to see patient and orders were received. Patient remains upset and wanting to try IV antibiotics before surgery is ordered. Dr. Pereira notified. Patient has no allergies. Patient denies pain with foot. See wound assessment for further documentation. Will continue to monitor.
[2021-10-11] MEDS: SENNOSIDES/DOCUSATE 8.6/50MG TABLET. PO SCH (21:00)
[2021-10-11 23:00] VITALS: BP 108/69
[2021-10-12] MEDS ORDERED: LEVO50CA3 PO (01:04)
[2021-10-12 03:03] VITALS: BP 96/63
[2021-10-12 05:15] LABS: BASO % 0 % (0-3); EOS # 0.1 x10^3/uL (0.0-0.7); EOS % 1 % (0-3); HEMATOCRIT 35.9 % (36.0-47.0); HEMOGLOBIN 12.2 g/dL (12.0-15.5); LYMPH # 1.1 x10^3/uL (1.0-4.8); LYMPH % 11 % (24-48); MEAN CORPUSCULAR HEMOGLOBIN 29 pg (25-35); MEAN CORPUSCULAR HGB CONC 34 g/dL (31-37); MEAN CORPUSCULAR VOLUME 85 fL (79-100); MONO # 1.1 x10^3/uL (0.0-1.1); MONO % 11 % (0-9); NEUT # 7.7 x10^3/uL (1.8-7.7); NEUT % 77 % (31-73); PLATELET COUNT 235 x10^3/uL (140-400); RED BLOOD COUNT 4.24 x10^6/uL (3.50-5.40); RED CELL DISTRIBUTION WIDTH 13.6 % (11.5-14.5)
[2021-10-12 05:33] LABS: ALBUMIN 3.4 g/dL (3.4-5.0); ALBUMIN/GLOBULIN RATIO 0.9 (1.0-1.7); CREATININE 0.9 mg/dL (0.6-1.0); GFR 64.5; POTASSIUM 3.7 mmol/L (3.5-5.1); TOTAL BILIRUBIN 1.2 mg/dL (0.2-1.0)
[2021-10-12] MEDS: LEVOTHYROXINE 25 MCG TABLET. PO SCH (06:00)
[2021-10-12 07:00] VITALS: BP 115/75
[2021-10-12] MEDS: SENNOSIDES/DOCUSATE 8.6/50MG TABLET. PO SCH ×2 (08:21→21:00)
[2021-10-12] MEDS: CEFEPIME HCL IV Push 2 GM VIAL. IVP SCH (08:22)
[2021-10-12] MEDS: VANCOMYCIN PER PHARMACY MC PRN (10:25)
--- NOTE | 2021-10-12 10:34 | PDOC ---
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 Vitals/I&O Vitals/I&O: Vital Signs Date Time Temp Pulse Resp B/P (MAP) Pulse Ox O2 Delivery O2 Flow Rate FiO2 10/12/21 07:00 98.3 83 18 115/75 (88) 100 Room Air 98.3 I & O 10/11/21 10/11/21 10/12/21 15:00 23:00 07:00 Intake Total 0 ml Balance 0 ml Physical Exam General: Alert, Other (Very anxious nearly tearful at times) Heart: Regular rate Lungs: Clear Abdomen: Normal bowel sounds Extremities: Other (Left second toe with severe cellulitis and some drainage) Labs Labs: Laboratory Tests Test 10/11/21 15:10 10/11/21 15:18 10/11/21 16:15 10/12/21 03:45 White Blood Count 11.4 x10^3/uL (4.0-11.0) 10.0 x10^3/uL (4.0-11.0) Red Blood Count 4.62 x10^6/uL (3.50-5.40) 4.24 x10^6/uL (3.50-5.40) Hemoglobin 13.3 g/dL (12.0-15.5) 12.2 g/dL (12.0-15.5) Hematocrit 38.9 % (36.0-47.0) 35.9 % (36.0-47.0) Mean Corpuscular Volume 84 fL (79-100) 85 fL (79-100) Mean Corpuscular Hemoglobin 29 pg (25-35) 29 pg (25-35) Mean Corpuscular Hemoglobin Concent 34 g/dL (31-37) 34 g/dL (31-37) Red Cell Distribution Width 13.5 % (11.5-14.5) 13.6 % (11.5-14.5) Platelet Count 260 x10^3/uL (140-400) 235 x10^3/uL (140-400) Neutrophils (%) (Auto) 85 % (31-73) 77 % (31-73) Lymphocytes (%) (Auto) 7 % (24-48) 11 % (24-48) Monocytes (%) (Auto) 8 % (0-9) 11 % (0-9) Eosinophils (%) (Auto) 0 % (0-3) 1 % (0-3) Basophils (%) (Auto) 0 % (0-3) 0 % (0-3) Neutrophils # (Auto) 9.6 x10^3/uL (1.8-7.7) 7.7 x10^3/uL (1.8-7.7) Lymphocytes # (Auto) 0.8 x10^3/uL (1.0-4.8) 1.1 x10^3/uL (1.0-4.8) Monocytes # (Auto) 0.9 x10^3/uL (0.0-1.1) 1.1 x10^3/uL (0.0-1.1) Eosinophils # (Auto) 0.0 x10^3/uL (0.0-0.7) 0.1 x10^3/uL (0.0-0.7) Basophils # (Auto) 0.0 x10^3/uL (0.0-0.2) 0.0 x10^3/uL (0.0-0.2) Erythrocyte Sedimentation Rate 31 (0-25) Sodium Level 138 mmol/L (136-145) 141 mmol/L (136-145) Potassium Level 4.2 mmol/L (3.5-5.1) 3.7 mmol/L (3.5-5.1) Chloride Level 100 mmol/L (98-107) 106 mmol/L (98-107) Carbon Dioxide Level 30 mmol/L (21-32) 28 mmol/L (21-32) Anion Gap 8 (6-14) 7 (6-14) Blood Urea Nitrogen 13 mg/dL (7-20) 13 mg/dL (7-20) Creatinine 1.0 mg/dL (0.6-1.0) 0.9 mg/dL (0.6-1.0) Estimated GFR (Cockcroft-Gault) 57.1 64.5 BUN/Creatinine Ratio 13 (6-20) 14 (6-20) Glucose Level 106 mg/dL (70-99) 101 mg/dL (70-99) Lactic Acid Level 0.7 mmol/L (0.4-2.0) Calcium Level 9.6 mg/dL (8.5-10.1) 9.0 mg/dL (8.5-10.1) Total Bilirubin 1.1 mg/dL (0.2-1.0) 1.2 mg/dL (0.2-1.0) Aspartate Amino Transf (AST/SGOT) 60 U/L (15-37) 29 U/L (15-37) Alanine Aminotransferase (ALT/SGPT) 56 U/L (14-59) 37 U/L (14-59) Alkaline Phosphatase 79 U/L (46-116) 64 U/L (46-116) C-Reactive Protein, Quantitative 21.6 mg/L (0-3.3) Total Protein 8.4 g/dL (6.4-8.2) 7.0 g/dL (6.4-8.2) Albumin 4.3 g/dL (3.4-5.0) 3.4 g/dL (3.4-5.0) Albumin/Globulin Ratio 1.0 (1.0-1.7) 0.9 (1.0-1.7) Procalcitonin < 0.10 ng/mL (0.00-0.10) Urine Collection Type Unknown Urine Color (Auto) Colorless Urine Turbidity Clear Urine pH (Auto) 6.5 (<5.0-8.0) Urine Specific [place] 1.006 (1.000-1.030) Urine Protein (Auto) Negative mg/dL (Negative) Urine Glucose (Auto)(UA) Negative mg/dL (Negative) Urine Ketones (Auto) Negative mg/dL (Negative) Urine Blood (Auto) Trace (Negative) Urine Nitrite Negative (Negative) Urine Bilirubin (Auto) Negative (Negative) Urine Urobilinogen (Auto) Normal mg/dL (Normal) Urine Leukocyte Esterase (Auto) Negative (Negative) Urine RBC 1-2 /HPF (0-2) Urine WBC 1-4 /HPF (0-4) Urine Squamous Epithelial Cells Occ /LPF Urine Bacteria 0 /HPF (0-FEW) Urine Opiates Screen Neg (NEG) Urine Methadone Screen Neg (NEG) Urine Barbiturates Neg (NEG) Urine Phencyclidine Screen Neg (NEG) Urine Amphetamine/Methamphetamine Neg (NEG) Urine Benzodiazepines Screen Neg (NEG) Urine Cocaine Screen Neg (NEG) Urine Cannabinoids Screen Neg (NEG) Urine Ethyl Alcohol Neg (NEG) SARS-CoV-2 Antigen (Rapid) Negative (NEGATIVE) Assessment and Plan Assessmemt and Plan Problems Medical Problems: (1) Toe infection Status: Acute Cellulitis, lymphangitis derived from a left second digit wound Patient met SIRS criteria for admission Plan For now continue the IV antibiotics Await infectious disease input I called Dr. Pereira appreciate his input Discussed with her Discussed with RN Discussed with case management Wound [facility] meds DVT prophylaxis Full code The prognosis for her toe is guarded (we are concerned she may need an amputation) Comment Review of Relevant I have reviewed the following items leonela (where applicable) has been applied. Medications: Current Medications Medications (Trade) Dose Ordered Sig/Eliana Route PRN Reason Start Time Stop Time Status Last Admin Dose Admin Sodium Chloride 1,000 ml @ 1,650 mls/hr Q37M IV 10/11/21 14:15 10/11/21 15:15 DC 10/11/21 15:24 Vancomycin HCl (Vanco Per Pharmacy) 1 each 1X ONCE MC 10/11/21 14:15 10/11/21 14:19 DC 10/11/21 14:15 Diphtheria/ Tetanus/Acell Pertussis (Boostrix) 0.5 ml ONCE ONCE VAX IM 10/11/21 14:15 10/11/21 14:19 DC 10/11/21 15:33 Vancomycin HCl 1.25 gm/Sodium Chloride 250 ml @ 166.667 mls/hr 1X ONCE IV 10/11/21 14:30 10/11/21 15:59 DC 10/11/21 16:05 Piperacillin Sod/ Tazobactam Sod 4.5 gm/Dextrose 100 ml @ 200 mls/hr 1X ONCE IV 10/11/21 14:22 10/11/21 14:44 DC 10/11/21 15:26 Vancomycin HCl (Vanco Per Pharmacy) 1 each PRN DAILY PRN MC SEE COMMENTS 10/11/21 18:30 10/12/21 10:25 Cefepime HCl (Maxipime) 2 gm Q12HR IVP 10/11/21 19:00 10/12/21 08:22 Metronidazole 100 ml @ 100 mls/hr Q8HRS IV 10/11/21 22:00 10/12/21 06:21 Vancomycin HCl 1.25 gm/Sodium Chloride 250 ml @ 166.667 mls/hr 1X ONCE IV 10/11/21 19:00 10/11/21 20:29 DC 10/11/21 19:42 Justifications for Admission Other Justification KYLER GIPSON III DO Oct 12, 2021 10:34
[2021-10-12 11:00] VITALS: BP 98/68
--- NOTE | 2021-10-12 12:57 | PDOC ---
Infectious Disease Note Vital Signs: Vital Signs Vital Signs Date Time Temp Pulse Resp B/P (MAP) Pulse Ox O2 Delivery O2 Flow Rate FiO2 10/12/21 11:00 73 16 98/68 (78) 98 Room Air 10/12/21 07:00 98.3 98.3 Medications: Inpatient Meds: Medications reviewed. Labs: Lab Laboratory Tests Test 10/11/21 15:10 10/11/21 15:18 10/11/21 16:15 10/12/21 03:45 White Blood Count 11.4 x10^3/uL (4.0-11.0) 10.0 x10^3/uL (4.0-11.0) Red Blood Count 4.62 x10^6/uL (3.50-5.40) 4.24 x10^6/uL (3.50-5.40) Hemoglobin 13.3 g/dL (12.0-15.5) 12.2 g/dL (12.0-15.5) Hematocrit 38.9 % (36.0-47.0) 35.9 % (36.0-47.0) Mean Corpuscular Volume 84 fL (79-100) 85 fL (79-100) Mean Corpuscular Hemoglobin 29 pg (25-35) 29 pg (25-35) Mean Corpuscular Hemoglobin Concent 34 g/dL (31-37) 34 g/dL (31-37) Red Cell Distribution Width 13.5 % (11.5-14.5) 13.6 % (11.5-14.5) Platelet Count 260 x10^3/uL (140-400) 235 x10^3/uL (140-400) Neutrophils (%) (Auto) 85 % (31-73) 77 % (31-73) Lymphocytes (%) (Auto) 7 % (24-48) 11 % (24-48) Monocytes (%) (Auto) 8 % (0-9) 11 % (0-9) Eosinophils (%) (Auto) 0 % (0-3) 1 % (0-3) Basophils (%) (Auto) 0 % (0-3) 0 % (0-3) Neutrophils # (Auto) 9.6 x10^3/uL (1.8-7.7) 7.7 x10^3/uL (1.8-7.7) Lymphocytes # (Auto) 0.8 x10^3/uL (1.0-4.8) 1.1 x10^3/uL (1.0-4.8) Monocytes # (Auto) 0.9 x10^3/uL (0.0-1.1) 1.1 x10^3/uL (0.0-1.1) Eosinophils # (Auto) 0.0 x10^3/uL (0.0-0.7) 0.1 x10^3/uL (0.0-0.7) Basophils # (Auto) 0.0 x10^3/uL (0.0-0.2) 0.0 x10^3/uL (0.0-0.2) Erythrocyte Sedimentation Rate 31 (0-25) Sodium Level 138 mmol/L (136-145) 141 mmol/L (136-145) Potassium Level 4.2 mmol/L (3.5-5.1) 3.7 mmol/L (3.5-5.1) Chloride Level 100 mmol/L (98-107) 106 mmol/L (98-107) Carbon Dioxide Level 30 mmol/L (21-32) 28 mmol/L (21-32) Anion Gap 8 (6-14) 7 (6-14) Blood Urea Nitrogen 13 mg/dL (7-20) 13 mg/dL (7-20) Creatinine 1.0 mg/dL (0.6-1.0) 0.9 mg/dL (0.6-1.0) Estimated GFR (Cockcroft-Gault) 57.1 64.5 BUN/Creatinine Ratio 13 (6-20) 14 (6-20) Glucose Level 106 mg/dL (70-99) 101 mg/dL (70-99) Lactic Acid Level 0.7 mmol/L (0.4-2.0) Calcium Level 9.6 mg/dL (8.5-10.1) 9.0 mg/dL (8.5-10.1) Total Bilirubin 1.1 mg/dL (0.2-1.0) 1.2 mg/dL (0.2-1.0) Aspartate Amino Transf (AST/SGOT) 60 U/L (15-37) 29 U/L (15-37) Alanine Aminotransferase (ALT/SGPT) 56 U/L (14-59) 37 U/L (14-59) Alkaline Phosphatase 79 U/L (46-116) 64 U/L (46-116) C-Reactive Protein, Quantitative 21.6 mg/L (0-3.3) Total Protein 8.4 g/dL (6.4-8.2) 7.0 g/dL (6.4-8.2) Albumin 4.3 g/dL (3.4-5.0) 3.4 g/dL (3.4-5.0) Albumin/Globulin Ratio 1.0 (1.0-1.7) 0.9 (1.0-1.7) Procalcitonin < 0.10 ng/mL (0.00-0.10) Urine Collection Type Unknown Urine Color (Auto) Colorless Urine Turbidity Clear Urine pH (Auto) 6.5 (<5.0-8.0) Urine Specific [place] 1.006 (1.000-1.030) Urine Protein (Auto) Negative mg/dL (Negative) Urine Glucose (Auto)(UA) Negative mg/dL (Negative) Urine Ketones (Auto) Negative mg/dL (Negative) Urine Blood (Auto) Trace (Negative) Urine Nitrite Negative (Negative) Urine Bilirubin (Auto) Negative (Negative) Urine Urobilinogen (Auto) Normal mg/dL (Normal) Urine Leukocyte Esterase (Auto) Negative (Negative) Urine RBC 1-2 /HPF (0-2) Urine WBC 1-4 /HPF (0-4) Urine Squamous Epithelial Cells Occ /LPF Urine Bacteria 0 /HPF (0-FEW) Urine Opiates Screen Neg (NEG) Urine Methadone Screen Neg (NEG) Urine Barbiturates Neg (NEG) Urine Phencyclidine Screen Neg (NEG) Urine Amphetamine/Methamphetamine Neg (NEG) Urine Benzodiazepines Screen Neg (NEG) Urine Cocaine Screen Neg (NEG) Urine Cannabinoids Screen Neg (NEG) Urine Ethyl Alcohol Neg (NEG) SARS-CoV-2 Antigen (Rapid) Negative (NEGATIVE) Objective: Assessment: Patient seen and examined Impression Left second toe infection Left foot cellulitis Plan: Plan of Care Patient wants trial with antibiotics Does not want to undergo surgery at this time Change antibiotics to Zosyn and daptomycin Local wound care as directed CAIT MITCHELL MD Oct 12, 2021 12:57
--- NOTE | 2021-10-12 13:29 | PDOC ---
PROGRESS NOTES Date of Service DATE: 10/12/21 TIME: 13:22 Subjective Subjective Patient denies any overnight event, worsening pain or constitutional symptoms associated with the left second digit. Per chart review, patient was seen by ID who recommended to Zosyn and daptomycin for IV antibiotic therapy. At bedside, patient continues to refuse surgery and wants to continue with IV antibiotic therapy. Objective Objective Vital Signs Date Time Temp Pulse Resp B/P (MAP) Pulse Ox O2 Delivery O2 Flow Rate FiO2 10/12/21 11:00 73 16 98/68 (78) 98 Room Air 10/12/21 07:00 98.3 98.3 Intake and Output 10/12/21 07:00 Intake Total 0 ml Balance 0 ml Intake Oral 0 ml # Voids 2 Physical Exam Physical Exam Physical Exam General: Pleasant without apparent distress, AOx3 Left lower extremity focused Dermatology: -dorsal forefoot erythema has receded to the level of MTPJ -There is serous blisters dorsal and plantar to the 2nd digit. -Dusky changes and mild ischemic changes to the plantar second DIPJ. -There is a full-thickness wound to the plantar PIPJ, probe deep without any fluctuance but drains serous fluid -resolved lymphangitis/proximal streaking to the distal anterior leg -Palpable and painful left inguinal lymph nodes Vascular: -DP/PT palpable -Foot is warm to touch with CFT less than 3 seconds x 5 Neurology: -Light touch sensation diminished to the level of distal leg MSK: -Mild TTP to left second digit -Rigid and limited passive first MTPJ range of motion however without fluctuance or crepitus or pain -Able to move digits 1 through 5 -Muscle strength 5 out of 5 across ankle joint -Calf is soft and nontender Assessment Assessment Problems Medical Problems: (1) Toe infection Status: Acute Plan Plan of Care Cellulitis, lymphangitis derived from a left second digit wound Patient met SIRS criteria for admission -Clinically, the erythema and lymphangitis have improved -WBC is downtrending to 10 -Per ID, Zosyn and daptomycin -Pending bedside swab culture -Pending blood culture -Nonweightbearing to the left forefoot -Dressing change with Betadine paint to the second digit twice daily. Keep the skin clean, dry -Pending wound care consult and further recommendation on dressing change Dispo: Clinically, patient is stable with downtrending WBC and erythema is now limited to distal 2nd MTPJ. I am still concerned with the survivoship of the digital skin flap and salvageability of the second digit. However, patient ref used surgery and wanted to continue with IV antibiotics. I will sign off for now and will defer IV antibiotic therapy to ID and local dressing change recommendation to wound care. Comment Review of Relevant I have reviewed the following items leonela (where applicable) has been applied. Labs Laboratory Tests Test 10/11/21 15:10 10/11/21 15:18 10/11/21 16:15 10/12/21 03:45 White Blood Count 11.4 x10^3/uL (4.0-11.0) 10.0 x10^3/uL (4.0-11.0) Red Blood Count 4.62 x10^6/uL (3.50-5.40) 4.24 x10^6/uL (3.50-5.40) Hemoglobin 13.3 g/dL (12.0-15.5) 12.2 g/dL (12.0-15.5) Hematocrit 38.9 % (36.0-47.0) 35.9 % (36.0-47.0) Mean Corpuscular Volume 84 fL (79-100) 85 fL (79-100) Mean Corpuscular Hemoglobin 29 pg (25-35) 29 pg (25-35) Mean Corpuscular Hemoglobin Concent 34 g/dL (31-37) 34 g/dL (31-37) Red Cell Distribution Width 13.5 % (11.5-14.5) 13.6 % (11.5-14.5) Platelet Count 260 x10^3/uL (140-400) 235 x10^3/uL (140-400) Neutrophils (%) (Auto) 85 % (31-73) 77 % (31-73) Lymphocytes (%) (Auto) 7 % (24-48) 11 % (24-48) Monocytes (%) (Auto) 8 % (0-9) 11 % (0-9) Eosinophils (%) (Auto) 0 % (0-3) 1 % (0-3) Basophils (%) (Auto) 0 % (0-3) 0 % (0-3) Neutrophils # (Auto) 9.6 x10^3/uL (1.8-7.7) 7.7 x10^3/uL (1.8-7.7) Lymphocytes # (Auto) 0.8 x10^3/uL (1.0-4.8) 1.1 x10^3/uL (1.0-4.8) Monocytes # (Auto) 0.9 x10^3/uL (0.0-1.1) 1.1 x10^3/uL (0.0-1.1) Eosinophils # (Auto) 0.0 x10^3/uL (0.0-0.7) 0.1 x10^3/uL (0.0-0.7) Basophils # (Auto) 0.0 x10^3/uL (0.0-0.2) 0.0 x10^3/uL (0.0-0.2) Erythrocyte Sedimentation Rate 31 (0-25) Sodium Level 138 mmol/L (136-145) 141 mmol/L (136-145) Potassium Level 4.2 mmol/L (3.5-5.1) 3.7 mmol/L (3.5-5.1) Chloride Level 100 mmol/L (98-107) 106 mmol/L (98-107) Carbon Dioxide Level 30 mmol/L (21-32) 28 mmol/L (21-32) Anion Gap 8 (6-14) 7 (6-14) Blood Urea Nitrogen 13 mg/dL (7-20) 13 mg/dL (7-20) Creatinine 1.0 mg/dL (0.6-1.0) 0.9 mg/dL (0.6-1.0) Estimated GFR (Cockcroft-Gault) 57.1 64.5 BUN/Creatinine Ratio 13 (6-20) 14 (6-20) Glucose Level 106 mg/dL (70-99) 101 mg/dL (70-99) Lactic Acid Level 0.7 mmol/L (0.4-2.0) Calcium Level 9.6 mg/dL (8.5-10.1) 9.0 mg/dL (8.5-10.1) Total Bilirubin 1.1 mg/dL (0.2-1.0) 1.2 mg/dL (0.2-1.0) Aspartate Amino Transf (AST/SGOT) 60 U/L (15-37) 29 U/L (15-37) Alanine Aminotransferase (ALT/SGPT) 56 U/L (14-59) 37 U/L (14-59) Alkaline Phosphatase 79 U/L (46-116) 64 U/L (46-116) C-Reactive Protein, Quantitative 21.6 mg/L (0-3.3) Total Protein 8.4 g/dL (6.4-8.2) 7.0 g/dL (6.4-8.2) Albumin 4.3 g/dL (3.4-5.0) 3.4 g/dL (3.4-5.0) Albumin/Globulin Ratio 1.0 (1.0-1.7) 0.9 (1.0-1.7) Procalcitonin < 0.10 ng/mL (0.00-0.10) Urine Collection Type Unknown Urine Color (Auto) Colorless Urine Turbidity Clear Urine pH (Auto) 6.5 (<5.0-8.0) Urine Specific C[place] 1.006 (1.000-1.030) Urine Protein (Auto) Negative mg/dL (Negative) Urine Glucose (Auto)(UA) Negative mg/dL (Negative) Urine Ketones (Auto) Negative mg/dL (Negative) Urine Blood (Auto) Trace (Negative) Urine Nitrite Negative (Negative) Urine Bilirubin (Auto) Negative (Negative) Urine Urobilinogen (Auto) Normal mg/dL (Normal) Urine Leukocyte Esterase (Auto) Negative (Negative) Urine RBC 1-2 /HPF (0-2) Urine WBC 1-4 /HPF (0-4) Urine Squamous Epithelial Cells Occ /LPF Urine Bacteria 0 /HPF (0-FEW) Urine Opiates Screen Neg (NEG) Urine Methadone Screen Neg (NEG) Urine Barbiturates Neg (NEG) Urine Phencyclidine Screen Neg (NEG) Urine Amphetamine/Methamphetamine Neg (NEG) Urine Benzodiazepines Screen Neg (NEG) Urine Cocaine Screen Neg (NEG) Urine Cannabinoids Screen Neg (NEG) Urine Ethyl Alcohol Neg (NEG) SARS-CoV-2 Antigen (Rapid) Negative (NEGATIVE) Laboratory Tests Test 10/11/21 15:10 10/11/21 15:18 10/11/21 16:15 10/12/21 03:45 White Blood Count 11.4 x10^3/uL (4.0-11.0) 10.0 x10^3/uL (4.0-11.0) Red Blood Count 4.62 x10^6/uL (3.50-5.40) 4.24 x10^6/uL (3.50-5.40) Hemoglobin 13.3 g/dL (12.0-15.5) 12.2 g/dL (12.0-15.5) Hematocrit 38.9 % (36.0-47.0) 35.9 % (36.0-47.0) Mean Corpuscular Volume 84 fL (79-100) 85 fL (79-100) Mean Corpuscular Hemoglobin 29 pg (25-35) 29 pg (25-35) Mean Corpuscular Hemoglobin Concent 34 g/dL (31-37) 34 g/dL (31-37) Red Cell Distribution Width 13.5 % (11.5-14.5) 13.6 % (11.5-14.5) Platelet Count 260 x10^3/uL (140-400) 235 x10^3/uL (140-400) Neutrophils (%) (Auto) 85 % (31-73) 77 % (31-73) Lymphocytes (%) (Auto) 7 % (24-48) 11 % (24-48) Monocytes (%) (Auto) 8 % (0-9) 11 % (0-9) Eosinophils (%) (Auto) 0 % (0-3) 1 % (0-3) Basophils (%) (Auto) 0 % (0-3) 0 % (0-3) Neutrophils # (Auto) 9.6 x10^3/uL (1.8-7.7) 7.7 x10^3/uL (1.8-7.7) Lymphocytes # (Auto) 0.8 x10^3/uL (1.0-4.8) 1.1 x10^3/uL (1.0-4.8) Monocytes # (Auto) 0.9 x10^3/uL (0.0-1.1) 1.1 x10^3/uL (0.0-1.1) Eosinophils # (Auto) 0.0 x10^3/uL (0.0-0.7) 0.1 x10^3/uL (0.0-0.7) Basophils # (Auto) 0.0 x10^3/uL (0.0-0.2) 0.0 x10^3/uL (0.0-0.2) Erythrocyte Sedimentation Rate 31 (0-25) Sodium Level 138 mmol/L (136-145) 141 mmol/L (136-145) Potassium Level 4.2 mmol/L (3.5-5.1) 3.7 mmol/L (3.5-5.1) Chloride Level 100 mmol/L (98-107) 106 mmol/L (98-107) Carbon Dioxide Level 30 mmol/L (21-32) 28 mmol/L (21-32) Anion Gap 8 (6-14) 7 (6-14) Blood Urea Nitrogen 13 mg/dL (7-20) 13 mg/dL (7-20) Creatinine 1.0 mg/dL (0.6-1.0) 0.9 mg/dL (0.6-1.0) Estimated GFR (Cockcroft-Gault) 57.1 64.5 BUN/Creatinine Ratio 13 (6-20) 14 (6-20) Glucose Level 106 mg/dL (70-99) 101 mg/dL (70-99) Lactic Acid Level 0.7 mmol/L (0.4-2.0) Calcium Level 9.6 mg/dL (8.5-10.1) 9.0 mg/dL (8.5-10.1) Total Bilirubin 1.1 mg/dL (0.2-1.0) 1.2 mg/dL (0.2-1.0) Aspartate Amino Transf (AST/SGOT) 60 U/L (15-37) 29 U/L (15-37) Alanine Aminotransferase (ALT/SGPT) 56 U/L (14-59) 37 U/L (14-59) Alkaline Phosphatase 79 U/L (46-116) 64 U/L (46-116) C-Reactive Protein, Quantitative 21.6 mg/L (0-3.3) Total Protein 8.4 g/dL (6.4-8.2) 7.0 g/dL (6.4-8.2) Albumin 4.3 g/dL (3.4-5.0) 3.4 g/dL (3.4-5.0) Albumin/Globulin Ratio 1.0 (1.0-1.7) 0.9 (1.0-1.7) Procalcitonin < 0.10 ng/mL (0.00-0.10) Urine Collection Type Unknown Urine Color (Auto) Colorless Urine Turbidity Clear Urine pH (Auto) 6.5 (<5.0-8.0) Urine Specific [place] 1.006 (1.000-1.030) Urine Protein (Auto) Negative mg/dL (Negative) Urine Glucose (Auto)(UA) Negative mg/dL (Negative) Urine Ketones (Auto) Negative mg/dL (Negative) Urine Blood (Auto) Trace (Negative) Urine Nitrite Negative (Negative) Urine Bilirubin (Auto) Negative (Negative) Urine Urobilinogen (Auto) Normal mg/dL (Normal) Urine Leukocyte Esterase (Auto) Negative (Negative) Urine RBC 1-2 /HPF (0-2) Urine WBC 1-4 /HPF (0-4) Urine Squamous Epithelial Cells Occ /LPF Urine Bacteria 0 /HPF (0-FEW) Urine Opiates Screen Neg (NEG) Urine Methadone Screen Neg (NEG) Urine Barbiturates Neg (NEG) Urine Phencyclidine Screen Neg (NEG) Urine Amphetamine/Methamphetamine Neg (NEG) Urine Benzodiazepines Screen Neg (NEG) Urine Cocaine Screen Neg (NEG) Urine Cannabinoids Screen Neg (NEG) Urine Ethyl Alcohol Neg (NEG) SARS-CoV-2 Antigen (Rapid) Negative (NEGATIVE) Medications Current Medications Sodium Chloride 1,000 ml @ 1,650 mls/hr Q37M IV Last administered on 10/11/21at 15:24; Start 10/11/21 at 14:15; Stop 10/11/21 at 15:15; Status DC Piperacillin Sod/ Tazobactam Sod 4.5 gm/Sodium Chloride 100 ml @ 200 mls/hr 1X ONCE IV ; Start 10/11/21 at 14:15; Stop 10/11/21 at 14:44; Status Cancel Vancomycin HCl (Vanco Per Pharmacy) 1 each 1X ONCE MC Last administered on 10/11/21at 14:15; Start 10/11/21 at 14:15; Stop 10/11/21 at 14:19; Status DC Morphine Sulfate (Morphine Sulfate) 4 mg PRN Q15MIN PRN IV/SQ PAIN GREATER THAN 3/10; Start 10/11/21 at 14:15; Stop 10/12/21 at 10:14; Status DC Diphtheria/ Tetanus/Acell Pertussis (Boostrix) 0.5 ml ONCE ONCE VAX IM Last administered on 10/11/21at 15:33; Start 10/11/21 at 14:15; Stop 10/11/21 at 14:19; Status DC Vancomycin HCl 1.25 gm/Sodium Chloride 250 ml @ 166.667 mls/hr 1X ONCE IV Last administered on 10/11/21at 16:05; Start 10/11/21 at 14:30; Stop 10/11/21 at 15:59; Status DC Piperacillin Sod/ Tazobactam Sod 4.5 gm/Dextrose 100 ml @ 200 mls/hr 1X ONCE IV Last administered on 10/11/21at 15:26; Start 10/11/21 at 14:22; Stop 10/11/21 at 14:44; Status DC Ondansetron HCl (Zofran) 4 mg PRN Q8HRS PRN IVP NAUSEA/VOMITING; Start 10/11/21 at 17:15; Stop 10/12/21 at 10:15; Status DC Morphine Sulfate (Morphine Sulfate) 4 mg PRN Q2HR PRN IVP PAIN; Start 10/11/21 at 17:15; Stop 10/12/21 at 10:14; Status DC Acetaminophen (Tylenol) 650 mg PRN Q4HRS PRN PO FEVER > 100.3'F; Start 10/11/21 at 17:15; Stop 10/12/21 at 13:08; Status DC Vancomycin HCl (Vanco Per Pharmacy) 1 each PRN DAILY PRN MC SEE COMMENTS Last administered on 10/12/21at 10:25; Start 10/11/21 at 18:30; Stop 10/12/21 at 13:04; Status DC Cefepime HCl (Maxipime) 2 gm Q12HR IVP Last administered on 10/12/21at 08:22; Start 10/11/21 at 19:00; Stop 10/12/21 at 12:59; Status DC Metronidazole 100 ml @ 100 mls/hr Q8HRS IV Last administered on 10/12/21at 06:21; Start 10/11/21 at 22:00; Stop 10/12/21 at 12:59; Status DC Vancomycin HCl 1.25 gm/Sodium Chloride 250 ml @ 166.667 mls/hr 1X ONCE IV Last administered on 10/11/21at 19:42; Start 10/11/21 at 19:00; Stop 10/11/21 at 20:29; Status DC Ondansetron HCl (Zofran) 4 mg PRN Q6HRS PRN IVP NAUSEA/VOMITING; Start 10/11/21 at 18:30 Calcium Carbonate/ Glycine (Tums) 500 mg PRN Q3HRS PRN PO UPSET STOMACH; Start 10/11/21 at 18:30 Zolpidem Tartrate (Ambien) 5 mg PRN QHS PRN PO INSOMNIA, MAY REPEAT IN 1HR; Start 10/11/21 at 18:30 Info (Non-Icu Electrolyte Protocol) 1 ea PRN DAILY PRN MC SEE COMMENTS; Start 10/11/21 at 18:30 Morphine Sulfate (Morphine Sulfate) 1 mg PRN Q1HR PRN IV PAIN-SEE COMMENTS; Start 10/11/21 at 18:30 Morphine Sulfate (Morphine Sulfate) 2 mg PRN Q1HR PRN IV PAIN-SEE COMMENTS; Start 10/11/21 at 18:30 Acetaminophen (Tylenol) 650 mg PRN Q6HRS PRN PO Headaches, Temp > 101.5F; Star t 10/11/21 at 18:30 Senna/Docusate Sodium (Senna Plus) 1 tab BID PO ; Start 10/11/21 at 21:00 Levothyroxine Sodium (Synthroid) 25 mcg DAILY06 PO ; Start 10/12/21 at 06:00 Vancomycin HCl 750 mg/Sodium Chloride 250 ml @ 250 mls/hr Q24H IV ; Start 10/12/21 at 20:00; Stop 10/12/21 at 12:59; Status DC Vancomycin HCl (Vancomycin Trough Level) 1 each 1X ONCE MC ; Start 10/13/21 at 19:30; Stop 10/13/21 at 19:31; Status Cancel Lactobacillus Rhamnosus (Culturelle) 1 cap BID PO ; Start 10/12/21 at 21:00 Piperacillin Sod/ Tazobactam Sod 3.375 gm/Sodium Chloride 50 ml @ 100 mls/hr Q6HRS IV ; Start 10/12/21 at 18:00 Daptomycin 320 mg/ Sodium Chloride 50 ml @ 100 mls/hr Q24H IV ; Start 10/12/21 at 16:00 Active Scripts Active Reported Levothyroxine (Levothyroxine Sodium) 50 Mcg Capsule 50 Mcg PO DAILY06 Vitals/I & O Vital Sign - Last 24 Hours 10/11/21 10/11/21 10/11/21 10/11/21 13:40 16:09 18:31 19:00 Temp 98.6 99.2 98.6 99.2 Pulse 110 101 81 81 Resp 18 18 18 18 B/P (MAP) 133/89 (104) 126/88 (101) 125/78 (94) 117/79 (92) Pulse Ox 100 100 99 99 O2 Delivery Room Air Room Air Room Air Room Air 10/11/21 10/11/21 10/12/21 10/12/21 20:25 23:00 03:03 07:00 Temp 99.6 99.2 98.3 99.6 99.2 98.3 Pulse 81 83 83 Resp 18 B/P (MAP) 108/69 (82) 96/63 (74) 115/75 (88) Pulse Ox 97 98 100 O2 Delivery Room Air Room Air Room Air Room Air 10/12/21 10/12/21 08:00 11:00 Pulse 73 Resp 16 B/P (MAP) 98/68 (78) Pulse Ox 98 O2 Delivery Room Air Room Air Intake and Output 10/11/21 10/11/21 10/12/21 15:00 23:00 07:00 Intake Total 0 ml Balance 0 ml Justifications for Admission Other Justification RAMIRO CARABALLO DPM Oct 12, 2021 13:29
--- NOTE | 2021-10-12 16:32 | NUR ---
Wound Care Wound Type/Assessment: Consult to eval and treat wound to L 2nd toe. 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 Xray of L 2nd toe shows soft tissue swelling but no bony abnormalities. Arterial studies are negative for DVT and show stenosis to femoral artery. Pedal pulse is strong and palpable. Toe is significantly swollen, red, macerated, with fluctuance at the distal tip of toe. Oozing thick serosanguineous drainage. Stable, dry eschar to plantar surface of toe; dark red bruised areas to medial and lateral surfaces. Pt denies pain, states her feet do not have much sensation. Treatment Recommendations/Plan: Consult Dr. Bunch for possible bedside debridement. [place] entire toe with betadine, place small strip of aquacel AG around base of toe and cover with dry gauze and tape. Change daily. Education provided: Education on ABT, wound healing, offloading. Offloading surface/device: Foot elevated on pillow. NWB at present (recommend heel touch only) Recommended Referrals/Tests: Dr. Bunch. Possibly a referral to vascular if appropriate Discharge Recommendations for dressings: As above pending bedside debridement.
--- NOTE | 2021-10-12 16:56 | CONS ---
DATE OF CONSULTATION: 10/12/2021 REFERRING PHYSICIAN: Alex Wakefield MD REASON FOR CONSULTATION: Left second toe infection. HISTORY OF PRESENT ILLNESS: A 56-year-old female with no significant past medical history, presented to the ER with complaints of left second toe swelling, pain and redness, which started a couple of months ago when she sustained a tiny cut on the bottom of the left second toe. It was improving, but she picked on it last week and developed the wound. The wound started getting worse with worsening swelling, pain,redness and drainage.The redness started spreading to the foot and lower leg. She had a fever of 101 at home the night prior to presentation. She denies any nausea, vomiting, diarrhea, sob or cough, gu symptoms, rash, other joint pain or abdominal pain. She denies being on any antibiotics. Denies having history of diabetes or peripheral vascular disease. Labs in ED revealed WBC of 11.4. ESR of 31. Procalcitonin of less than 0.10. CRP of 21.6. The patient had an x-ray, which showed soft tissue swelling, left second toe without fracture or bony destructive process, marked arthritis of the first metatarsophalangeal joint. The patient was started on IV vancomycin, cefepime and Flagyl. She had ultrasound of lower extremity, which was negative for thrombus in the deep venous system of the left lower extremity, enlarged lymph node in the left groin, 27 x 16 mm, could be reactive in nature. The patient underwent arterial ultrasound of the left lower extremity, which showed mildly elevated velocity within the left common femoral artery indicating 30-49% stenosis, monophasic waveforms within the left dorsalis pedis may relate to proximal stenosis. Podiatry was consulted. They recommended amputation of the left second digit. Pt wanted trial with antibiotics and not amputation at this time. ID consultation has been requested by primary team for further evaluation for antibiotic management. 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 Also her has an upcoming trip next week and she does not want him to change the plans due to her needing surgery.She also is worried about how is she going to deal with weaing shoes with open toes.. According to the patient today, the redness and swelling of the left 2nd toe and foot is improving. PAST MEDICAL HISTORY: Denies diabetes, peripheral vascular disease. Hypothyroidism. PAST SURGICAL HISTORY: Bone spur removal of the left first metatarsophalangeal joint bunion. SOCIAL HISTORY: Denies smoking, ETOH or illicit drug use. 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 , lives with . CURRENT MEDICATIONS: Cefepime, metronidazole, vancomycin, also received a dose of Zosyn. Other medications reviewed in medication list. ALLERGIES: No known drug allergies. REVIEW OF SYSTEMS: Negative for further episodes of fevers, chills, nausea, vomiting, diarrhea, headache, sore throat, shortness of breath, cough, chest pain, chest pain with deep breathing, symptoms, rash, other skin problems except for above, other joint pain except for above. Otherwise, negative. PHYSICAL EXAMINATION: VITAL SIGNS: Temperature 98.3, pulse 73, respirations 16, blood pressure 119/68, oxygen saturation 98% on room air. T-max is 99.6. GENERAL: Alert, oriented x 3 female, lying in bed comfortably, in no acute distress. HEENT: Normocephalic and atraumatic. Anicteric. No thrush. Oral mucosa moist. NECK: Supple, no JVD. LUNGS: Clear bilaterally. No wheezing. HEART: S1, S2. No gallops or murmurs. ABDOMEN: Soft, nontender, nondistended, no rebound or guarding. EXTREMITIES: No edema except for the left foot where there is swelling on the dorsum with redness, edematous, erythematous. Left second digit with blisters, serous fluid. No streaking on the distal anterior leg on today's exam. No calf tenderness. Dorsalis pedis palpable. There is a dark eschar on the plantar aspect of the left second toe, tender. NEUROLOGIC: Alert and oriented x 3, grossly nonfocal. PSYCHIATRIC: Calm, but a little anxious and tearful. MUSCULOSKELETAL: No other joint swelling or effusion noted. No decrease in range of motion except for the left foot changes as above. LABORATORY DATA: WBC 10, was 11.4, hemoglobin 12.2, hematocrit 35.9, platelets 235. ESR 31. Sodium 141, potassium 3.7, chloride 106, bicarbonate 28, BUN 13, creatinine 0.9, glucose 101, calcium 9.0, lactic acid 0.7. LFTs normal. C-reactive protein 21.6. Procalcitonin less than 0.10. UA negative. UDS negative. SARS-COVID negative. Micro: Blood cultures negative so far. Wound cultures are pending at this time. IMAGIN. Foot x-ray as above. 2. Ultrasound of the left lower extremity venous as above. 3. Left lower extremity arterial ultrasound as above. IMPRESSION: 1. Left second toe infection 2. Cellulitis, left foot. 3. Mild leukocytosis. 4. X-ray without osteomyelitis. 5. History of hypothyroidism. 6. History of left first metatarsophalangeal joint bone spur removal. RECOMMENDATIONS: 1. Podiatry input noted. They have recommended amputation. 2. The patient is refusing for the same at this time. 3. She wants trial with antibiotics at this time. 4. Pros and cons discussed. Possibility of failure despite aggressive IV antibiotics,as without surgery, antibiotics alone may not be optimal. Risk of progession discussed .Pt verbalizes understanding. She wants trial with IV antibiotics. 7. Discontinue IV vancomycin, cefepime and Flagyl. . Start daptomycin and restart Zosyn. 8. Continue Local wound care as directed. 9. Elevate left lower extremity. 10. Monitor labs and cultures. 11. Continue supportive care. All questions answered to the patient's satisfaction. Total time spent 30 minutes including face to face counselling. Thank you for allowing me to participate in this patient's care. If you have any questions, do not hesitate to contact me. Discussed with nursing staff. LINA DR: Shashi TID: [id number] GEOVANNA
[2021-10-12] MEDS: DAPTOmycin (GENERIC) IVPB 320 MG in IV NORMAL SALINE 50ML 50 ML IV SCH (17:01)
[2021-10-12] MEDS: PIPERACILLIN/TAZOBACTAM 3.375 GM in IV NORMAL SALINE 50ML 50 ML IV SCH (17:53)
[2021-10-12 19:00] VITALS: BP 119/83
[2021-10-12] MEDS ORDERED: VANCOMYCIN 750 MG in IV NORMAL SALINE 250ML 250 ML IV SCH (20:00)
[2021-10-12] MEDS: LACTOBACILLUS RHAMNOSUS GG 1 CAPSULE. PO SCH (21:11)
[2021-10-12 23:00] VITALS: BP 119/74
[2021-10-13] MEDS: PIPERACILLIN/TAZOBACTAM 3.375 GM in IV NORMAL SALINE 50ML 50 ML IV SCH ×4 (00:15→17:29)
[2021-10-13 03:00] VITALS: BP 108/73
[2021-10-13 05:59] LABS: C-REACTIVE PROTEIN 28.9 mg/L (0-3.3); CALCIUM 9.4 mg/dL (8.5-10.1); CREATININE 0.9 mg/dL (0.6-1.0); GFR 64.5; POTASSIUM 3.5 mmol/L (3.5-5.1)
[2021-10-13] MEDS: LEVOTHYROXINE 25 MCG TABLET. PO SCH (06:00)
[2021-10-13 07:00] VITALS: BP 112/67
[2021-10-13] MEDS: SENNOSIDES/DOCUSATE 8.6/50MG TABLET. PO SCH ×2 (09:00→21:00)
[2021-10-13] MEDS: ENOXAPARIN 40 MG/0.4 ML SYRINGE. SQ SCH (09:00)
--- NOTE | 2021-10-13 09:45 | NUR ---
Allergies and reactions NKDA INR BUN Cr 0.9 Platelets 235 Blood culture done Y blood culture results Negative Order Verified Y Consent signed Y Previous PICC placement N Past Medical/Surgical history and current diagnosis reviewed Y Patient Medical /Surgical History Related to PICC line placement Infectious Disease consult Special considerations for PICC line placement Infections PICC placement indication Caust[place] medication class drug usage, shelter antibiotic usage Aziza Koo name of PICC Nurse
--- NOTE | 2021-10-13 10:12 | NUR ---
Wound Care Wound Type/Assessment: Follow up assessment with Dr. Gagandeep Bunch for further evaluation and possible debridement of left 2nd toe. Patient was informed of possible debridement at bedside. Dr. Bunch further explained procedure to patient. Wound dressing was removed and left 2nd toe was cleaned and prepared for debridement. Dr. Bunch performed an assessment and light selective debridement of loose tissue around the tip of left toes. Patient tolerated the procedure well with no complaints of pain and scant bleeding. On further assessment patient has 2+ Pedis Dorsalis and Posterior Tibial pulses. Color to dorsal toe is much improved, pink in color with red wound bed base. Edema of toe appears improved and stretched tissue has started to slough. Plantar side at DIP shows a secure hard eschar that is stable. Wound was dressed with Xeroform gauze on the dorsum of toe and plantar eschar painted with betadine. Wound was covered with a light dressing of tube gauze. Foot was elevated and ice pack reapplied. Treatment Recommendations/Plan: Wound to be assessed daily with daily dressing changes. Foot elevation to continue. Orthotic half shoe has been ordered from [facility]. PICC line has been ordered by Infectious Disease with ongoing antibiotics at home. Education provided: Education on wound healing, offloading and post discharge care Offloading surface/device: Foot elevated on pillow. NWB at present (recommend heel touch only). Half shoe ordered today. Recommended Referrals/Tests: Wound Clinic follow up post discharge Discharge Recommendations for dressings: As above pending bedside debridement.
--- NOTE | 2021-10-13 10:34 | PDOC2 ---
CONSULT Date of Consult Date of Consult DATE: 10/13/21 TIME: 10:13 Reason for Consult Reason for Consult: Left toe wound Referring Physician Referring Physician: Dr. Velázquez Identification/Chief Complaint Chief Complaint Left second toe infection requiring hospitalization, IV antibiotic therapy and concern for nonviable plantar surface. Source Source: Chart review, Patient History of Present Illness Reason for Visit: This is a 56-year-old patient who presented to the emergency department with left second toe infection and dry gangrenous changes to the plantar surface. She has received IV antibiotic therapy and reports significant improvement in swelling and redness. She has received podiatry consultation with recommendation for amputation. She has declined this at this time and wound consultation is obtained to provide possible conservative approach. Patient appears relatively healthy with no history of diabetes or vascular disease and an ultrasound identified monophasic waveform in dorsalis pedis artery. Lab is reviewed with finding of sedimentation rate of 31. Plain film x-ray was unremarkable. At this time she is anticipating placement of a PICC line and continued IV antibiotic therapy. She does not reports similar significant history of wounding or ulceration in the past. Past Medical History Past Medical History Past medical history is largely unremarkable. 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 Past Surgical History Past Surgical History She has had prior bunionectomy. Family History Family History Unremarkable Social History Social History Negative for alcohol, tobacco or drug use. Current Problem List Problem List Problems Medical Problems: (1) Toe infection Status: Acute Current Medications Current Medications Current Medications Sodium Chloride 1,000 ml @ 1,650 mls/hr Q37M IV Last administered on 10/11/21at 15:24; Start 10/11/21 at 14:15; Stop 10/11/21 at 15:15; Status DC Piperacillin Sod/ Tazobactam Sod 4.5 gm/Sodium Chloride 100 ml @ 200 mls/hr 1X ONCE IV ; Start 10/11/21 at 14:15; Stop 10/11/21 at 14:44; Status Cancel Vancomycin HCl (Vanco Per Pharmacy) 1 each 1X ONCE MC Last administered on 10/11/21at 14:15; Start 10/11/21 at 14:15; Stop 10/11/21 at 14:19; Status DC Morphine Sulfate (Morphine Sulfate) 4 mg PRN Q15MIN PRN IV/SQ PAIN GREATER THAN 3/10; Start 10/11/21 at 14:15; Stop 10/12/21 at 10:14; Status DC Diphtheria/ Tetanus/Acell Pertussis (Boostrix) 0.5 ml ONCE ONCE VAX IM Last administered on 10/11/21at 15:33; Start 10/11/21 at 14:15; Stop 10/11/21 at 14:19; Status DC Vancomycin HCl 1.25 gm/Sodium Chloride 250 ml @ 166.667 mls/hr 1X ONCE IV Last administered on 10/11/21at 16:05; Start 10/11/21 at 14:30; Stop 10/11/21 at 15:59; Status DC Piperacillin Sod/ Tazobactam Sod 4.5 gm/Dextrose 100 ml @ 200 mls/hr 1X ONCE IV Last administered on 10/11/21at 15:26; Start 10/11/21 at 14:22; Stop 10/11/21 at 14:44; Status DC Ondansetron HCl (Zofran) 4 mg PRN Q8HRS PRN IVP NAUSEA/VOMITING; Start 10/11/21 at 17:15; Stop 10/12/21 at 10:15; Status DC Morphine Sulfate (Morphine Sulfate) 4 mg PRN Q2HR PRN IVP PAIN; Start 10/11/21 at 17:15; Stop 10/12/21 at 10:14; Status DC Acetaminophen (Tylenol) 650 mg PRN Q4HRS PRN PO FEVER > 100.3'F; Start 10/11/21 at 17:15; Stop 10/12/21 at 13:08; Status DC Vancomycin HCl (Vanco Per Pharmacy) 1 each PRN DAILY PRN MC SEE COMMENTS Last administered on 10/12/21at 10:25; Start 10/11/21 at 18:30; Stop 10/12/21 at 13:04; Status DC Cefepime HCl (Maxipime) 2 gm Q12HR IVP Last administered on 10/12/21at 08:22; Start 10/11/21 at 19:00; Stop 10/12/21 at 12:59; Status DC Metronidazole 100 ml @ 100 mls/hr Q8HRS IV Last administered on 10/12/21at 06:21; Start 10/11/21 at 22:00; Stop 10/12/21 at 12:59; Status DC Vancomycin HCl 1.25 gm/Sodium Chloride 250 ml @ 166.667 mls/hr 1X ONCE IV Last administered on 10/11/21at 19:42; Start 10/11/21 at 19:00; Stop 10/11/21 at 20:29; Status DC Ondansetron HCl (Zofran) 4 mg PRN Q6HRS PRN IVP NAUSEA/VOMITING; Start 10/11/21 at 18:30 Calcium Carbonate/ Glycine (Tums) 500 mg PRN Q3HRS PRN PO UPSET STOMACH; Start 10/11/21 at 18:30 Zolpidem Tartrate (Ambien) 5 mg PRN QHS PRN PO INSOMNIA, MAY REPEAT IN 1HR; Start 10/11/21 at 18:30 Info (Non-Icu Electrolyte Protocol) 1 ea PRN DAILY PRN MC SEE COMMENTS; Start 10/11/21 at 18:30 Morphine Sulfate (Morphine Sulfate) 1 mg PRN Q1HR PRN IV PAIN-SEE COMMENTS; Start 10/11/21 at 18:30 Morphine Sulfate (Morphine Sulfate) 2 mg PRN Q1HR PRN IV PAIN-SEE COMMENTS; Start 10/11/21 at 18:30 Acetaminophen (Tylenol) 650 mg PRN Q6HRS PRN PO Headaches, Temp > 101.5F; Start 10/11/21 at 18:30 Senna/Docusate Sodium (Senna Plus) 1 tab BID PO ; Start 10/11/21 at 21:00 Levothyroxine Sodium (Synthroid) 25 mcg DAILY06 PO ; Start 10/12/21 at 06:00 Vancomycin HCl 750 mg/Sodium Chloride 250 ml @ 250 mls/hr Q24H IV ; Start 10/12/21 at 20:00; Stop 10/12/21 at 12:59; Status DC Vancomycin HCl (Vancomycin Trough Level) 1 each 1X ONCE MC ; Start 10/13/21 at 19:30; Stop 10/13/21 at 19:31; Status Cancel Lactobacillus Rhamnosus (Culturelle) 1 cap BID PO Last administered on 10/12/21at 21:11; Start 10/12/21 at 21:00 Piperacillin Sod/ Tazobactam Sod 3.375 gm/Sodium Chloride 50 ml @ 100 mls/hr Q6HRS IV Last administered on 10/13/21at 06:07; Start 10/12/21 at 18:00 Daptomycin 320 mg/ Sodium Chloride 50 ml @ 100 mls/hr Q24H IV Last administered on 10/12/21at 17:01; Start 10/12/21 at 16:00 Enoxaparin Sodium (Lovenox 40mg Syringe) 40 mg Q24H SQ ; Start 10/13/21 at 09:00 Active Scripts Active Reported Levothyroxine (Levothyroxine Sodium) 50 Mcg Capsule 50 Mcg PO DAILY06 Allergies Allergies: Coded Allergies: No Known Drug Allergies (Unverified , 10/11/21) ROS Review of System Negative except as reported below or in history of chief complaint. Musculoskeletal: Yes Other (Arthritic complaints to bilateral first MTP areas.) Skin: Yes Other Physical Exam General: Alert, Oriented X3, Cooperative, No acute distress HEENT: Atraumatic, PERRLA, EOMI, Mucous membr. moist/pink Lungs: Clear to auscultation, Normal air movement Heart: Regular rate Abdomen: Soft, No tenderness Extremities: No clubbing, No cyanosis Skin: Other (Left second toe modest edema and erythema with plantar surface demonstrating dry gangrenous changes proximally.) Neuro: Normal speech, Cranial nerves 3-12 NL Psych/Mental Status: Mental status NL, Mood NL MUSCULOSKELETAL: Not examined Vitals VITALS Vital Signs Date Time Temp Pulse Resp B/P (MAP) Pulse Ox O2 Delivery O2 Flow Rate FiO2 10/13/21 08:05 Room Air 10/13/21 07:00 98.1 78 18 112/67 (82) 98 98.1 Labs Labs Laboratory Tests Test 10/11/21 15:10 10/11/21 15:18 10/11/21 16:15 10/12/21 03:45 White Blood Count 11.4 x10^3/uL (4.0-11.0) 10.0 x10^3/uL (4.0-11.0) Red Blood Count 4.62 x10^6/uL (3.50-5.40) 4.24 x10^6/uL (3.50-5.40) Hemoglobin 13.3 g/dL (12.0-15.5) 12.2 g/dL (12.0-15.5) Hematocrit 38.9 % (36.0-47.0) 35.9 % (36.0-47.0) Mean Corpuscular Volume 84 fL (79-100) 85 fL (79-100) Mean Corpuscular Hemoglobin 29 pg (25-35) 29 pg (25-35) Mean Corpuscular Hemoglobin Concent 34 g/dL (31-37) 34 g/dL (31-37) Red Cell Distribution Width 13.5 % (11.5-14.5) 13.6 % (11.5-14.5) Platelet Count 260 x10^3/uL (140-400) 235 x10^3/uL (140-400) Neutrophils (%) (Auto) 85 % (31-73) 77 % (31-73) Lymphocytes (%) (Auto) 7 % (24-48) 11 % (24-48) Monocytes (%) (Auto) 8 % (0-9) 11 % (0-9) Eosinophils (%) (Auto) 0 % (0-3) 1 % (0-3) Basophils (%) (Auto) 0 % (0-3) 0 % (0-3) Neutrophils # (Auto) 9.6 x10^3/uL (1.8-7.7) 7.7 x10^3/uL (1.8-7.7) Lymphocytes # (Auto) 0.8 x10^3/uL (1.0-4.8) 1.1 x10^3/uL (1.0-4.8) Monocytes # (Auto) 0.9 x10^3/uL (0.0-1.1) 1.1 x10^3/uL (0.0-1.1) Eosinophils # (Auto) 0.0 x10^3/uL (0.0-0.7) 0.1 x10^3/uL (0.0-0.7) Basophils # (Auto) 0.0 x10^3/uL (0.0-0.2) 0.0 x10^3/uL (0.0-0.2) Erythrocyte Sedimentation Rate 31 (0-25) Sodium Level 138 mmol/L (136-145) 141 mmol/L (136-145) Potassium Level 4.2 mmol/L (3.5-5.1) 3.7 mmol/L (3.5-5.1) Chloride Level 100 mmol/L (98-107) 106 mmol/L (98-107) Carbon Dioxide Level 30 mmol/L (21-32) 28 mmol/L (21-32) Anion Gap 8 (6-14) 7 (6-14) Blood Urea Nitrogen 13 mg/dL (7-20) 13 mg/dL (7-20) Creatinine 1.0 mg/dL (0.6-1.0) 0.9 mg/dL (0.6-1.0) Estimated GFR (Cockcroft-Gault) 57.1 64.5 BUN/Creatinine Ratio 13 (6-20) 14 (6-20) Glucose Level 106 mg/dL (70-99) 101 mg/dL (70-99) Lactic Acid Level 0.7 mmol/L (0.4-2.0) Calcium Level 9.6 mg/dL (8.5-10.1) 9.0 mg/dL (8.5-10.1) Total Bilirubin 1.1 mg/dL (0.2-1.0) 1.2 mg/dL (0.2-1.0) Aspartate Amino Transf (AST/SGOT) 60 U/L (15-37) 29 U/L (15-37) Alanine Aminotransferase (ALT/SGPT) 56 U/L (14-59) 37 U/L (14-59) Alkaline Phosphatase 79 U/L (46-116) 64 U/L (46-116) C-Reactive Protein, Quantitative 21.6 mg/L (0-3.3) Total Protein 8.4 g/dL (6.4-8.2) 7.0 g/dL (6.4-8.2) Albumin 4.3 g/dL (3.4-5.0) 3.4 g/dL (3.4-5.0) Albumin/Globulin Ratio 1.0 (1.0-1.7) 0.9 (1.0-1.7) Procalcitonin < 0.10 ng/mL (0.00-0.10) Urine Collection Type Unknown Urine Color (Auto) Colorless Urine Turbidity Clear Urine pH (Auto) 6.5 (<5.0-8.0) Urine Specific Holcomb 1.006 (1.000-1.030) Urine Protein (Auto) Negative mg/dL (Negative) Urine Glucose (Auto)(UA) Negative mg/dL (Negative) Urine Ketones (Auto) Negative mg/dL (Negative) Urine Blood (Auto) Trace (Negative) Urine Nitrite Negative (Negative) Urine Bilirubin (Auto) Negative (Negative) Urine Urobilinogen (Auto) Normal mg/dL (Normal) Urine Leukocyte Esterase (Auto) Negative (Negative) Urine RBC 1-2 /HPF (0-2) Urine WBC 1-4 /HPF (0-4) Urine Squamous Epithelial Cells Occ /LPF Urine Bacteria 0 /HPF (0-FEW) Urine Opiates Screen Neg (NEG) Urine Methadone Screen Neg (NEG) Urine Barbiturates Neg (NEG) Urine Phencyclidine Screen Neg (NEG) Urine Amphetamine/Methamphetamine Neg (NEG) Urine Benzodiazepines Screen Neg (NEG) Urine Cocaine Screen Neg (NEG) Urine Cannabinoids Screen Neg (NEG) Urine Ethyl Alcohol Neg (NEG) Coronavirus (COVID-19)(PCR) Not detected (NOT DETECTD) SARS-CoV-2 Antigen (Rapid) Negative (NEGATIVE) Test 10/13/21 04:15 Erythrocyte Sedimentation Rate 27 (0-25) Sodium Level 139 mmol/L (136-145) Potassium Level 3.5 mmol/L (3.5-5.1) Chloride Level 103 mmol/L (98-107) Carbon Dioxide Level 28 mmol/L (21-32) Anion Gap 8 (6-14) Blood Urea Nitrogen 18 mg/dL (7-20) Creatinine 0.9 mg/dL (0.6-1.0) Estimated GFR (Cockcroft-Gault) 64.5 Glucose Level 93 mg/dL (70-99) Calcium Level 9.4 mg/dL (8.5-10.1) Creatine Kinase 48 U/L (26-192) C-Reactive Protein, Quantitative 28.9 mg/L (0-3.3) Laboratory Tests Test 10/13/21 04:15 Erythrocyte Sedimentation Rate 27 (0-25) Sodium Level 139 mmol/L (136-145) Potassium Level 3.5 mmol/L (3.5-5.1) Chloride Level 103 mmol/L (98-107) Carbon Dioxide Level 28 mmol/L (21-32) Anion Gap 8 (6-14) Blood Urea Nitrogen 18 mg/dL (7-20) Creatinine 0.9 mg/dL (0.6-1.0) Estimated GFR (Cockcroft-Gault) 64.5 Glucose Level 93 mg/dL (70-99) Calcium Level 9.4 mg/dL (8.5-10.1) Creatine Kinase 48 U/L (26-192) C-Reactive Protein, Quantitative 28.9 mg/L (0-3.3) Images Images X-ray with arthritic changes only Assessment/Plan Assessment/Plan Left second toe and infection with dry gangrenous changes to the plantar surface proximal area. Plan: Wound service offered to follow the patient along to closely observe gangrenous skin site evolution. We were detailed that this may still well require amputation as previously suggested by podiatry. We have laid out a plan of wound dressing and follow-up as well as offloading recommendations to try to accommodate the patient's conservative wishes. Patient certainly does appear to have reasonable expectations. See orders above. Debridement note: Following informed patient consent nonadherent, elevated superficial skin services were removed with forceps and scissors. This was well-tolerated by the patient and constituted a excisional debridement of nonviable tissue only. No tissue loss was demonstrated and topical lidocaine was utilized for anesthesia. This was well-tolerated by the patient. GENIA BACON DO Oct 13, 2021 10:34
[2021-10-13 11:00] VITALS: BP 126/77
--- NOTE | 2021-10-13 11:38 | NUR ---
Lovenox held for PICC placement. Will start 10/14 AM.
--- NOTE | 2021-10-13 11:46 | NUR ---
Procedure: Following complete explanation of the PICC procedure including the indications, risks, and potential complications, informed consent was obtained. The possibility for infection was discussed along with signs, symptoms, and prevention. All the questions were answered. Written and verbal patient education was provided. Hand hygiene performed. Standardized central line checklist was utilized. The patient was placed in the supine position, the arm was prepped with chlorhexidine and patient draped with maximum sterile barrier. 1 mL 1% lidocaine was infiltrated into the skin to provide local anesthesia. A thorough assessment of left upper extremity completed. Using real-time ultrasound guidance and standardized micro puncture set, the basilic vein was punctured but wire would not thread after multiple attempts. Interventional Radiology was notified that PICC placement was unsuccessful at bedside. Complications:
--- NOTE | 2021-10-13 12:05 | PDOC ---
[facility] PROGRESS NOTE Date of Service DOS: DATE: 10/13/21 TIME: 12:04 Chief Complaint Chief Complaint Cellulitis, lymphangitis derived from a left second digit wound Patient met SIRS criteria for admission History of Present Illness History of Present Illness 10/13/2021 Patient seen and examined Discussed with RN Chart reviewed Her left foot seems to be resolving a little bit the cellulitis and erythema is pulling away from the line She is still quite anxious but I gave her a lot of reassurance and she was thankful for the 10/12/2021 Patient seen and examined Discussed with RN Discussed with case management Chart reviewed Discussed with her 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 Vitals/I&O Vitals/I&O: Vital Signs Date Time Temp Pulse Resp B/P (MAP) Pulse Ox O2 Delivery O2 Flow Rate FiO2 10/13/21 08:05 Room Air 10/13/21 07:00 98.1 78 18 112/67 (82) 98 98.1 I & O 10/12/21 10/12/21 10/13/21 15:00 23:00 07:00 Intake Total 240 ml 170 ml 250 ml Balance 240 ml 170 ml 250 ml Physical Exam General: Alert, Oriented X3, Cooperative, No acute distress Heart: Regular rate Lungs: Clear Abdomen: Soft, No tenderness Extremities: No clubbing, No cyanosis Skin: Other (Left second toe modest edema and erythema with plantar surface demonstrating dry gangrenous changes proximally.) Labs Labs: Laboratory Tests Test 10/13/21 04:15 Erythrocyte Sedimentation Rate 27 (0-25) Sodium Level 139 mmol/L (136-145) Potassium Level 3.5 mmol/L (3.5-5.1) Chloride Level 103 mmol/L (98-107) Carbon Dioxide Level 28 mmol/L (21-32) Anion Gap 8 (6-14) Blood Urea Nitrogen 18 mg/dL (7-20) Creatinine 0.9 mg/dL (0.6-1.0) Estimated GFR (Cockcroft-Gault) 64.5 Glucose Level 93 mg/dL (70-99) Calcium Level 9.4 mg/dL (8.5-10.1) Creatine Kinase 48 U/L (26-192) C-Reactive Protein, Quantitative 28.9 mg/L (0-3.3) Assessment and Plan Assessmemt and Plan Problems Medical Problems: (1) Toe infection Status: Acute Cellulitis, lymphangitis derived from a left second digit wound Patient met SIRS criteria for admission Plan For now continue the IV antibiotics We are trying to arrange home IV antibiotics when she gets her PICC line Wound care team is going to possibly do a debridement today Await further infectious disease input Discussed with RN Discussed with case management Wound [facility]PC meds DVT prophylaxis Full code The prognosis for her toe is guarded but improving slowly (we are concerned she could still need an amputation?) Comment Review of Relevant I have reviewed the following items leonela (where applicable) has been applied. Medications: Current Medications Medications (Trade) Dose Ordered Sig/Eliana Route PRN Reason Start Time Stop Time Status Last Admin Dose Admin Lactobacillus Rhamnosus (Culturelle) 1 cap BID PO 10/12/21 21:00 10/12/21 21:11 Piperacillin Sod/ Tazobactam Sod 3.375 gm/Sodium Chloride 50 ml @ 100 mls/hr Q6HRS IV 10/12/21 18:00 10/13/21 06:07 Daptomycin 320 mg/ Sodium Chloride 50 ml @ 100 mls/hr Q24H IV 10/12/21 16:00 10/12/21 17:01 Justifications for Admission Other Justification KYLER GIPSON III DO Oct 13, 2021 12:05
[2021-10-13] MEDS: LACTOBACILLUS RHAMNOSUS GG 1 CAPSULE. PO SCH ×2 (12:10→20:37)
--- NOTE | 2021-10-13 12:43 | PDOC ---
Infectious Disease Note Subjective Subjective Patient is feeling better ROS ROS No nausea vomiting diarrhea or pain Vital Sign Vital Signs Vital Signs Date Time Temp Pulse Resp B/P (MAP) Pulse Ox O2 Delivery O2 Flow Rate FiO2 10/13/21 11:00 98.3 75 18 126/77 (93) 100 Room Air 98.3 Physical Exam PHYSICAL EXAM GENERAL: Alert, oriented x 3 female, lying in bed comfortably, in no acute distress. HEENT: Normocephalic and atraumatic. Anicteric. No thrush. Oral mucosa moist. NECK: Supple, no JVD. LUNGS: Clear bilaterally. No wheezing. HEART: S1, S2. No gallops or murmurs. ABDOMEN: Soft, nontender, nondistended, no rebound or guarding. EXTREMITIES: No edema except for the left foot where there is swelling on the dorsum with redness, edematous, erythematous. Left second digit with blisters, serous fluid. No streaking on the distal anterior leg on today's exam. No calf tenderness. Dorsalis pedis palpable. There is a dark eschar on the plantar aspect of the left second toe, tender. NEUROLOGIC: Alert and oriented x 3, grossly nonfocal. PSYCHIATRIC: Calm, but a little anxious and tearful. MUSCULOSKELETAL: No other joint swelling or effusion noted. No decrease in range of motion except for the left foot changes as above. Labs Lab Laboratory Tests Test 10/13/21 04:15 Erythrocyte Sedimentation Rate 27 (0-25) Sodium Level 139 mmol/L (136-145) Potassium Level 3.5 mmol/L (3.5-5.1) Chloride Level 103 mmol/L (98-107) Carbon Dioxide Level 28 mmol/L (21-32) Anion Gap 8 (6-14) Blood Urea Nitrogen 18 mg/dL (7-20) Creatinine 0.9 mg/dL (0.6-1.0) Estimated GFR (Cockcroft-Gault) 64.5 Glucose Level 93 mg/dL (70-99) Calcium Level 9.4 mg/dL (8.5-10.1) Creatine Kinase 48 U/L (26-192) C-Reactive Protein, Quantitative 28.9 mg/L (0-3.3) Micro Microbiology 10/11/21 Gram Stain - Final, Resulted 10/11/21 Aerobic and Anaerobic Culture - Preliminary, Resulted Staphylococcus Epidermidis Staphylococcus Aureus 10/11/21 Blood Culture - Preliminary, Resulted NO GROWTH AFTER 1 DAY Objective Assessment IMPRESSION: 1. Left second toe infection 2. Cellulitis, left foot. 3. Mild leukocytosis. 4. X-ray without osteomyelitis. 5. History of hypothyroidism. 6. History of left first metatarsophalangeal joint bone spur removal. Plan Plan of Care Patient wants trial with antibiotics Does not want to undergo surgery at this time Change antibiotics to Zosyn and daptomycin Local wound care as directed Foot redness is improving Hopefully discharge tomorrow once staff aureus susceptibilities are known Patient is afraid to do IV at home she may elect to come here to do IV every day ELIZABET MITCHELL MD Oct 13, 2021 12:43
--- NOTE | 2021-10-13 13:32 | RAD ---
Procedure: Upper extremity PICC line placement Clinical Indication: Adult female with infection requiring long-term antibiotics Sedation: Local anesthesia only was provided Antibiotics: None Exposure: Kerma-Area Product: 1 Gycm2 Contrast: None Sterility: All elements of maximal sterile barrier technique including the use of a cap, mask, steril e gown, sterile gloves, large sterile sheet, appropriate hand hygiene, and 2% chlorhexidine for cutan eous antisepsis (or acceptable alternative antiseptic per current guidelines) were followed for this procedure. Consent: The procedure was explained in its entirety to the patient or the patients designated repres entative by a member of the treatment team, including a discussion of the risks, benefits and commonl y accepted alternatives to the procedure, as well as the expected consequences of no therapy whatsoev er. Discussion of the risks included, but was not limited to, those that are most frequent and thos e that are rare but possibly severe or life-threatening, as well as the possibility of unforeseen com plications. Technique and Findings: Following informed consent, the patient was prepped and draped in the usual s terile fashion. Ultrasound interrogation of the left arm revealed patency and compressibility of lef t brachial vein. A hard copy ultrasound image was recorded. 1% Lidocaine was used to achieve local anesthesia and a 21-gauge micropuncture needle was used to gain access to the targeted vein. The nee dle was exchanged over wire for a 5 [place]uvian peel-away sheath which was used to deploy a PICC line unde r fluoroscopic guidance such that the distal tip resided at the cavoatrial junction. The catheter fl ushed and aspirated with ease and was sutured to the skin. Complications: No immediate Impression: 1. Ultrasound guided PICC line placement as described. Electronically signed by: Ky Durbin MD (10/13/2021 1:30 PM) [id number]
[2021-10-13 15:00] VITALS: BP 89/65
[2021-10-13] MEDS: DAPTOmycin (GENERIC) IVPB 320 MG in IV NORMAL SALINE 50ML 50 ML IV SCH (16:38)
[2021-10-13 19:00] VITALS: BP 117/71
[2021-10-13 23:00] VITALS: BP 129/76
[2021-10-14] MEDS: PIPERACILLIN/TAZOBACTAM 3.375 GM in IV NORMAL SALINE 50ML 50 ML IV SCH ×3 (00:20→12:20)
[2021-10-14 03:28] VITALS: BP 115/71
[2021-10-14] MEDS: LEVOTHYROXINE 25 MCG TABLET. PO SCH (06:09)
[2021-10-14 07:00] VITALS: BP 128/87
[2021-10-14] MEDS: ENOXAPARIN 40 MG/0.4 ML SYRINGE. SQ SCH (09:00)
[2021-10-14] MEDS: SENNOSIDES/DOCUSATE 8.6/50MG TABLET. PO SCH (09:00)
[2021-10-14] MEDS: LACTOBACILLUS RHAMNOSUS GG 1 CAPSULE. PO SCH (09:17)
--- NOTE | 2021-10-14 10:27 | PDOC ---
[facility] PROGRESS NOTE Date of Service DOS: DATE: 10/14/21 TIME: 10:25 Chief Complaint Chief Complaint Cellulitis, lymphangitis derived from a left second digit wound Patient met SIRS criteria for admission History of Present Illness History of Present Illness 10/14/2021 Patient seen exam Discussed with RN Chart reviewed Discussed with case management I undressed the toe The wound does appear to be improving She does have some persistent eschar on the plantar aspect of the toe but overall looks better 10/13/2021 Patient seen and examined Discussed with RN Chart reviewed Her left foot seems to be resolving a little bit the cellulitis and erythema is pulling away from the line She is still quite anxious but I gave her a lot of reassurance and she was thankful for the 10/12/2021 Patient seen and examined Discussed with RN Discussed with case management Chart reviewed Discussed with her 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 HEENT: Normocephalic and atraumatic. Anicteric. No thrush. Oral mucosa moist. NECK: Supple, no JVD. LUNGS: Clear bilaterally. No wheezing. HEART: S1, S2. No gallops or murmurs. ABDOMEN: Soft, nontender, nondistended, no rebound or guarding. EXTREMITIES: No edema except for the left foot where there is swelling on the dorsum with redness, edematous, erythematous. Left second digit with blisters, serous fluid. No streaking on the distal anterior leg on today's exam. No calf tenderness. Dorsalis pedis palpable. There is a dark eschar on the plantar aspect of the left second toe, tender. NEUROLOGIC: Alert and oriented x 3, grossly nonfocal. PSYCHIATRIC: Calm, but a little anxious and tearful. MUSCULOSKELETAL: No other joint swelling or effusion noted. No decrease in range of motion except for the left foot changes as above. General: Alert, Oriented X3, Cooperative, No acute distress Heart: Regular rate Lungs: Clear Abdomen: Soft, No tenderness Extremities: No clubbing, No cyanosis Skin: Other (Left second toe modest edema and erythema with plantar surface demonstrating dry gangrenous changes proximally.) Assessment and Plan Assessmemt and Plan Problems Medical Problems: (1) Toe infection Status: Acute Cellulitis, lymphangitis derived from a left second digit wound Patient met SIRS criteria for admission Plan We plan to discharge this afternoon with home health for IV antibiotics She also plans to go to the wound clinic once or twice a week as outpatient For now continue the IV antibiotics IV antibiotics per infectious disease Discussed with RN Discussed with case management Wound long-term meds DVT prophylaxis Full code The prognosis for her toe is guarded but improving daily. Comment Review of Relevant I have reviewed the following items leonela (where applicable) has been applied. Justifications for Admission Other Justification KYLER GIPSON III DO Oct 14, 2021 10:27
--- NOTE | 2021-10-14 10:30 | SNU/HH DC ---
DISCHARGE WITH HOME HEALTH DISCHARGE INFORMATION: Final Diagnosis: Problems Medical Problems: (1) Toe infection Status: Acute Condition on Discharge: Stable CODE STATUS: Code Status: Full HOME HEALTH: Face to Face: I certify this patient is under my care and that I, or a nurse practitioner or physician's conservation assistant working with me, had a face to face encounter that meets the physician face to face encounter requirements with this patient on []. Medical Complications: Other (Infected toe) Custodial For: Assess & Educate Safety, Other: (Assist with wound dressings) RN For Eval/Treatment: Yes Physical Therapy For: Evalulation/Treatment Occupational Therapy For: Evaluation/Treatment Home Health Aide For: Self-care PILOT [address] PATROL For: Community Resources Pt Meets Homebound Status: Poor coordination w/ amb. POST DISCHARGE ORDERS: DIET AFTER DISCHARGE: Cardiac CERTIFICATION STATEMENT: Certification Statement: Certification Statement: Based on the above finding, I certify that this patient is confined to the home and needs intermittent alf care, physical therapy and/or speech therapy, or continues to need occupational therapy.~ This patient is under my care, and I have initiated the establishment of the plan of care.~ This patient will be followed by myself or a community physician who will periodically review the plan of care. Home Meds Reported Medications Levothyroxine Sodium (Levothyroxine) 50 Mcg Capsule, 50 MCG PO DAILY06 for hypothyroid, CAP 10/12/21 KYLER GIPSON III DO Oct 14, 2021 10:30
[2021-10-14 11:00] VITALS: BP 126/85
--- NOTE | 2021-10-14 11:00 | NUR ---
WOUND CARE: Patient given appointment card for wound care on 10/20/21 at 12:30. Patient v/u.
--- NOTE | 2021-10-14 13:25 | PDOC ---
Infectious Disease Note Subjective Subjective Patient is feeling better ROS ROS no n/v/d/sob Vital Sign Vital Signs Vital Signs Date Time Temp Pulse Resp B/P (MAP) Pulse Ox O2 Delivery O2 Flow Rate FiO2 10/14/21 11:00 99.0 88 18 126/85 (99) 97 Room Air 99.0 Physical Exam PHYSICAL EXAM GENERAL: Alert, oriented x 3 female, lying in bed comfortably, in no acute distress. HEENT: Normocephalic and atraumatic. Anicteric. No thrush. Oral mucosa moist. NECK: Supple, no JVD. LUNGS: Clear bilaterally. No wheezing. HEART: S1, S2. No gallops or murmurs. ABDOMEN: Soft, nontender, nondistended, no rebound or guarding. EXTREMITIES: No edema except for the left foot where there is swelling on the dorsum with redness, edematous, erythematous. Left second digit with blisters, serous fluid. No streaking on the distal anterior leg on today's exam. No calf tenderness. Dorsalis pedis palpable. There is a dark eschar on the plantar aspect of the left second toe, tender. NEUROLOGIC: Alert and oriented x 3, grossly nonfocal. PSYCHIATRIC: Calm, but a little anxious and tearful. MUSCULOSKELETAL: No other joint swelling or effusion noted. No decrease in range of motion except for the left foot changes as above. Labs Micro Microbiology 10/11/21 Gram Stain - Final, Resulted 10/11/21 Aerobic and Anaerobic Culture - Preliminary, Resulted Staphylococcus Epidermidis Staphylococcus Aureus,,, MSSA 10/11/21 Blood Culture - Preliminary, Resulted NO GROWTH AFTER 1 DAY Objective Assessment IMPRESSION: 1. Left second toe infection 2. Cellulitis, left foot. 3. Mild leukocytosis. 4. X-ray without osteomyelitis. 5. History of hypothyroidism. 6. History of left first metatarsophalangeal joint bone spur removal. Plan Plan of Care Patient wants trial with antibiotics Does not want to undergo surgery at this time daptomycin Local wound care as directed Foot redness is improving Hopefully discharge tomorrow once staff aureus susceptibilities are known Patient is afraid to do IV at home she may elect to come here to do IV every day d/c on dapto, pt wants to come here to do iv antibiotics ELIZABET MITCHELL MD Oct 14, 2021 13:25
[2021-10-14 15:00] VITALS: BP 130/82
[2021-10-14] MEDS: DAPTOmycin (GENERIC) IVPB 320 MG in IV NORMAL SALINE 50ML 50 ML IV SCH (15:42)
--- NOTE | 2021-10-14 18:33 | NUR ---
Pt discharged home with self care and daily antibiotic infusions in out patient. Discharge instructions and prescriptions discussed. PICC in place. Wound dressing small amount of drainage. Changed as requested by patient. Pt packed belongings on her own. Assisted to wheelchair and was secured in car with .
== END 2021-10-14 18:36 | disposition home or self-care (01) | DRG 571 ==
LOC: ER 13:38 → 4 NORTH 15:49
PROVIDERS: ADMIT Student in an Organized Health Care Education/Training Program; ATTEND Student in an Organized Health Care Education/Training Program
PROC: 0JBR0ZZ Excision of Left Foot Subcutaneous Tissue and Fascia, Open Approach (ICD-10-PCS; principal; 2021-10-11)
PROC: 02HV33Z Insertion of Infusion Device into Superior Vena Cava, Percutaneous Approach (ICD-10-PCS; 2021-10-13)
PROC: B548ZZA Ultrasonography of Superior Vena Cava, Guidance (ICD-10-PCS; 2021-10-13)
DX: L03.116 Cellulitis of left lower limb (principal); I96 Gangrene, not elsewhere classified; R65.10 Systemic inflammatory response syndrome (SIRS) of non-infectious origin without acute organ dysfunction; E03.9 Hypothyroidism, unspecified; M19.90 Unspecified osteoarthritis, unspecified site; Z20.822 Contact with and (suspected) exposure to COVID-19; B95.61 Methicillin susceptible Staphylococcus aureus infection as the cause of diseases classified elsewhere
CPT/HCPCS: 36415; 36573; 73630; 80048; 80053; 80307; 81001; 82550; 83605; 84145; 85025; 85651; 86140; 87040; 87075; 87077; 87186; 87426; 90471; 90715; 93923; 93971; 96365; 96368; C1751; C1892; J0692; J0878; J2543; J3370; J3490; J7030; J7050; J7060; U0003; 99285-25; G0378